=== PATIENT | female | born 1990 | race Hispanic/Latino ===

== ENCOUNTER 2024-06-09 09:00 | Inpatient (IN) | payer SELFPAY ==
[2024-06-09] VITALS (28 sets, daily range): BP systolic 109–154; BP diastolic 54–96; PULSE 72–99; RESP 12–21; TEMP 36.3–37; O2SAT 98–100; BMI 23.8
--- NOTE | ~2024-06-09 | XR_ITS ---
XR chest 2V Ordering provider: Alfonso Vigil MD History: 33 years Female with . chest pain, weakness post dialysis . Comparison: None. FINDINGS: MEDIASTINUM: The cardiac silhouette is not enlarged. A globular shape is noted. Evaluation for perica rdial effusion is advised. LUNGS: No pneumothorax. Opacification in the right lower lobe with blunting of the costophrenic angle which may indicate atelectasis versus pneumonia with pleural effusion. OTHER: No free air under the diaphragm. Stents seen in the right and left axilla. IMPRESSION: Right lower lobe atelectasis versus pneumonia with pleural effusion. Reviewed, dictated and finalized at location A. [facility]ATCHER
--- NOTE | 2024-06-09 09:02 | ECG_ITS ---
Test Date: 2024-06-09 09:07:58 Measurements Intervals [place] Rate: 102 P: 0 TN: 0 QRS: -29 QRSD: 93 T: 89 QT: 354 QTc: 462 Interpretive Statements SINUS TACHYCARDIA INCOMPLETE RIGHT BUNDLE BRANCH BLOCK BORDERLINE R WAVE PROGRESSION, ANTERIOR LEADS BORDERLINE ST-T WAVE ABNORMALITY- LAT/HIGH LAT LEADS BASELINE ARTIFACT- I, II, III, AVR, AVL, AVF BORDERLINE ECG No previous ECG available for comparison Electronically Signed On 06-09-2024 10:04:36 DAIRY HUSBANDMAN by Addy Carroll D.O.
[2024-06-09 09:19] LABS: Basophils Percent Auto 0.3 % (0.2-1.2); Eosinophils Absolute Auto 0.1 K/mm3 (0-0.3); Eosinophils Percent Auto 1.7 % (0-4.4); Immature Granulocyte Absolute 0.05 K/mm3 (0.00-0.031); Immature Granulocyte Percent A 0.7 % (0-0.5); Lymphocytes Absolute Auto 1.16 K/mm3 (0.9-3.2); Lymphocytes Percent Auto 16.9 % (18.3-44.2); Mean Corpuscular HGB Conc 34.4 g/dl (32-36); Mean Corpuscular Hemoglobin 32.1 pg (26-34); Mean Corpuscular Volume 93.4 fl (80-100); Mean Platelet Volume 9.9 fl (7.4-10.4); Monocytes Absolute Auto 0.3 K/mm3 (0.1-0.6); Monocytes Percent Auto 4.7 % (2.6-8.5); Neutrophils Absolute Auto 5.2 K/mm3 (1.3-6.7); Neutrophils Percent Auto 75.7 % (45.5-73.1); Platelet Count Result 219 k/mm3 (150-375); Red Blood Count 1.37 M/mm3 (4.2-5.4); Red Cell Distribution Width 14.2 % (11.5-14.5); White Blood Count 6.9 K/mm3 (4.5-10.0)
[2024-06-09 09:23] LABS: Hematocrit 12.8 % (37.0-47.0); Hemoglobin 4.4 g/dL (12.0-15.0)
[2024-06-09 09:30] LABS: Alanine Aminotransferase 11 U/L (6-35); Albumin Level 4.2 g/dL (3.5-5.1); Alkaline Phosphatase 154 U/L (38-126); Anion Gap 17 mmol/L (4-12); Aspartate Amino Transferase 12 U/L (14-36); Bilirubin,Total 0.7 mg/dL (0.2-1.3); Blood Urea Nitrogen 102 mg/dL (7-17); Calcium 8.6 mg/dL (8.4-10.2); Carbon Dioxide 28 mmol/L (22-30); Chloride 89 mmol/L (98-107); Estimated Glomerular Filt Rate 9; Glucose 105 mg/dL (65-110); Lipase 352 U/L (23-300); Potassium 3.9 mmol/L (3.4-5.0); Sodium 134 mmol/L (137-145)
[2024-06-09 09:31] LABS: INR 1.3; Prothrombin Time 16.9 Seconds (11.1-14.7)
[2024-06-09 09:32] LABS: Partial Thromboplastin Time 34.2 Seconds (22.3-36.8)
[2024-06-09 09:44] LABS: Troponin I 0.122 ng/mL (0.000-0.034)
--- NOTE | 2024-06-09 09:56 | ED_ITS ---
HPI - General Adult General Chief complaint: Chest Pain Stated complaint: chest pain from dialysis Time Seen by Provider: 06/09/24 09:27 History of Present Illness HPI narrative: 33 old female presenting to the emergency department for evaluation for hematemesis and hematochezia. Patient reports these symptoms started last night. Patient has no prior history of GERD or ulcers. 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 Patient did go to dialysis this morning but due to symptoms of lightheaded and dizziness she was transferred to the emergency department. Patient was found to have a hemoglobin of 4.4. Patient denies any chest pain or abdominal pain. Related Data Allergies Allergy/AdvReac Type Severity Reaction Status Date / Time No Known Allergies Allergy Verified 06/09/24 09:17 Review of Systems Review of Systems: All systems reviewed & are unremarkable except as noted in HPI and below PMFSH Past Medical History Medical History (Updated 06/09/24 @ 16:26 by Sloan Cisneros APRN) Hypertension Kidney transplant rejection Surgical History Surgical History (Updated 06/09/24 @ 16:26 by Sloan Cisneros APRN) Kidney transplant recipient Family History Family History (Updated 06/09/24 @ 14:38 by Beba Parikh RN) Unknown CKD (chronic kidney disease) Hypertension Diabetes mellitus Social History Social History Smoking status: Never smoker Alcohol intake: never Substance use: never Substance use type: does not use Do You Feel Safe in your Home?: Yes Lack of Transportation: No Lack of Food: Never True Current Housing: I Have Housing Concerned About Future Housing: No Difficulty Paying Gas/Electric Bills: No Difficulty Paying for Meds: No Currently Unemployed: YES Education: High School Diploma/GED Difficulty w/ Childcare or Family Care: No Spiritual care concerns: No Exam Narrative: APPEARANCE: Well appearing, no pain, no distress, well-nourished. HEAD: normocephalic, atraumatic. EYES: PERRLA/EOMI, conjunctivae clear. NOSE: Normal no drainage EARS:TMS clear with good light reflex. THROAT: Pharynx clear, no exudate. NECK: Supple. No adenopathy, no masses. RESPIRATORY: Airway patent, respirations nonlabored. Clear to auscultation bilaterally, no rales, rhonchi, wheezing. CARDIOVASCULAR: Regular rate and rhythm without murmurs rubs or gallops. ABDOMINAL: Soft, nontender, nondistended, normal bowel sounds MUSCULOSKELETAL: Moves all extremities. Strength/ROM intact, No edema, No calf tenderness. NEURO: Alert. Cranial nerves II through XII intact. Grossly intact SKIN: Warm, dry. Normal Color Course Vital Signs Vital signs: Vital Signs Temperature 97.3 F L 06/09/24 09:08 Pulse Rate 99 06/09/24 09:08 Respiratory Rate 18 06/09/24 09:08 Blood Pressure 120/54 L 06/09/24 09:08 Pulse Oximetry 100 06/09/24 09:08 Oxygen Delivery Room Air 06/09/24 09:08 Temperature 98.0 F 06/09/24 16:12 Pulse Rate 77 06/09/24 16:12 Respiratory Rate 20 06/09/24 16:12 Blood Pressure 119/74 06/09/24 16:12 Pulse Oximetry 100 06/09/24 16:12 Oxygen Delivery Room Air 06/09/24 10:31 Medical Decision Making [facility] Narrative Medical decision making narrative: 33 old female presents emergency department for evaluation for increased generalized weakness. Patient was found have a hemoglobin of 4.4 2 units of packed red blood cells were ordered. Does complain of hematochezia and melena. Patient had no further hematemesis in the emergency department but patient was started on Protonix and famotidine. Patient's digital rectal exam was positive for melena. Case was discussed with GI patient was accepted for admission. Patient did have subtle ST changes on her EKG but was chest pain-free. Case was discussed with cardiology in the agreed that this was most likely demand ischemia and they will follow the troponins, no heparin was recommended for cardiac reasons. GI was consulted as well. Nephrology was also consulted since the patient does have end-stage renal disease and has been on dialysis for the last 3 years. The patient is afebrile with no leukocytosis and hemoglobin of 4.4, patient's CMP is as expected for baseline. Patient's troponin was elevated but troponins were flat Differential Diagnosis Differential Diagnosis: ACS, gastritis, bleeding ulcer, Vital Signs Vital Signs: Vital Signs Temperature 97.3 F L 06/09/24 09:08 Pulse Rate 99 06/09/24 09:08 Respiratory Rate 18 06/09/24 09:08 Blood Pressure 120/54 L 06/09/24 09:08 Pulse Oximetry 100 06/09/24 09:08 Oxygen Delivery Room Air 06/09/24 09:08 Temperature 98.0 F 06/09/24 16:12 Pulse Rate 77 06/09/24 16:12 Respiratory Rate 20 06/09/24 16:12 Blood Pressure 119/74 06/09/24 16:12 Pulse Oximetry 100 06/09/24 16:12 Oxygen Delivery Room Air 06/09/24 10:31 Lab Data Lab results reviewed: Yes I reviewed the patient's lab results. 06/09/24 09:14 06/09/24 09:14 Labs: Lab Results 06/09/24 06/09/24 06/09/24 Range/Units 09:14 09:48 11:59 WBC 6.9 (4.5-10.0) K/mm3 RBC 1.37 L (4.2-5.4) M/mm3 Hgb 4.4 L* (12.0-15.0) g/dL Hct 12.8 L* (37.0-47.0) % MCV 93.4 (80-100) fl MCH 32.1 (26-34) pg MCHC 34.4 (32-36) g/dl RDW 14.2 (11.5-14.5) % Plt Count 219 (150-375) k/mm3 MPV 9.9 (7.4-10.4) fl Immature Gran % (Auto) 0.7 H (0-0.5) % Neut % (Auto) 75.7 H (45.5-73.1) % Lymph % (Auto) 16.9 L (18.3-44.2) % [place] % (Auto) 4.7 (2.6-8.5) % Eos % (Auto) 1.7 (0-4.4) % Baso % (Auto) 0.3 (0.2-1.2) % Lymph # (Auto) 1.16 (0.9-3.2) K/mm3 [place] # (Auto) 0.3 (0.1-0.6) K/mm3 Eos # (Auto) 0.1 (0-0.3) K/mm3 Baso # (Auto) 0.0 (0.0-0.1) K/mm3 Abs Immat Gran (auto) 0.05 H (0.00-0.031) K/mm3 Absolute Neuts (auto) 5.2 (1.3-6.7) K/mm3 Absolute Nucleated RBC 0.000 (0.0-0.012) K/mm3 Nucleated RBC % 0.0 (0.0-0.2) % PT 16.9 H (11.1-14.7) Seconds INR 1.3 APTT 34.2 (22.3-36.8) Seconds Sodium 134 L (137-145) mmol/L Potassium 3.9 (3.4-5.0) mmol/L Chloride 89 L (98-107) mmol/L Carbon Dioxide 28 (22-30) mmol/L Anion Gap 17 H (4-12) mmol/L BUN 102 H (7-17) mg/dL Creatinine 5.50 H (0.7-1.0) mg/dL Estim Creat Clear Calc Not Reportable Estimated GFR 9 L (59 - ) Glucose 105 (65-110) mg/dL Calcium 8.6 (8.4-10.2) mg/dL Total Bilirubin 0.7 (0.2-1.3) mg/dL AST 12 L (14-36) U/L ALT 11 (6-35) U/L Alkaline Phosphatase 154 H (38-126) U/L Troponin I 0.122 H* 0.116 H* (0.000-0.034) ng/mL Total Protein 8.0 (6.3-8.2) g/dL Albumin 4.2 (3.5-5.1) g/dL Lipase 352 H (23-300) U/L Blood Type O Positive Antibody Screen Negative Crossmatch See Detail Imaging Data Radiologist's impression: Impressions Chest X-Ray 06/09/24 09:33 IMPRESSION: Right lower lobe atelectasis versus pneumonia with pleural effusion. Critical Care Time Critical Care Time Critical Care Time: Yes Total Critical Care Time: 35 Discharge Plan Discharge Clinical Impression: Hematochezia, Hematemesis Patient Disposition: Still a Patient Condition: Serious
[2024-06-09] MEDS: FAMOTIDINE 20 MG/2 ML VIAL IV PUSH (10:11)
[2024-06-09] MEDS: PANTOPRAZOLE SODIUM IV 40 MG VIAL 80 MG IV PUSH (10:11)
[2024-06-09] MEDS: SODIUM CHLORIDE 0.9% IV 250 ML 30 ML IV CONT ×2 (11:13→20:39)
[2024-06-09] MEDS: TUBING, BLOOD PLUM PUMP TUBING 1 EACH XX ×3 (11:18→20:40)
--- NOTE | 2024-06-09 12:23 | ECG_ITS ---
Test Date: 2024-06-09 12:43:30 Measurements Intervals [place] Rate: 84 P: 51 FL: 152 QRS: -27 QRSD: 90 T: 74 QT: 407 QTc: 481 Interpretive Statements SINUS RHYTHM INCOMPLETE RIGHT BUNDLE BRANCH BLOCK DELAYED PRECORDIAL R/S TRANSITION BORDERLINE ST-T WAVE ABNORMALITY- HIGH LATERAL LEADS BASELINE ARTIFACT- II, III, AVF BORDERLINE ECG Compared to ECG 06/09/2024 09:07:58 HEART RATE HAS DECREASED Electronically Signed On 06-09-2024 12:50:01 COMPLIANCE AIDE by Addy Carroll D.O.
[2024-06-09 12:41] LABS: Troponin I 0.116 ng/mL (0.000-0.034)
--- NOTE | 2024-06-09 12:48 | P.HP_ITS ---
H&P: HPI History of Present Illness Date/Time: 06/09/24 12:48 Chief Complaint: symptomatic anemia Narrative: This is a 33-year-old female patient with a past medical history of hypertension and end-stage renal disease on dialysis Saturday at [facility] in [place] who is admitted to hospital after feeling lightheaded and dizzy while at dialysis. Patient reported hematemesis and bloody stool on 06/07/2024 but afterwards she felt better so she did not seek care at that time. While at dialysis this morning patient had significant symptoms and felt terrible so dialysis was cut short and she was brought to the emergency department for evaluation. In the emergency department patient found to have hemoglobin of 4.4. Unknown baseline labs as no prior records are available in our system. Blood transfusion initiated in the emergency department and patient admitted to the IMU. GI and Nephrology were consulted. Review of Systems Review of Systems: All systems reviewed & are unremarkable except as noted in HPI and below PMFSH Past Medical History Medical History Hypertension Kidney transplant rejection Surgical History Surgical History Kidney transplant recipient Family History Family History Unknown CKD (chronic kidney disease) Hypertension Diabetes mellitus Social History Social History Smoking status: Never smoker Alcohol intake: never Substance use: never Substance use type: does not use Do You Feel Safe in your Home?: Yes Lack of Transportation: No Lack of Food: Never True Current Housing: I Have Housing Concerned About Future Housing: No Difficulty Paying Gas/Electric Bills: No Difficulty Paying for Meds: No Currently Unemployed: YES Education: High School Diploma/GED Difficulty w/ Childcare or Family Care: No Spiritual care concerns: No Meds Home Medications and Allergies Home Medications Medication Instructions Recorded Confirmed Type calcium acetate(phosphat bind) 667 667 mg PO BID 06/09/24 06/09/24 History mg capsule nifedipine 90 mg tablet,extended 90 mg PO DAILY 06/09/24 06/09/24 History release Allergies Allergy/AdvReac Type Severity Reaction Status Date / Time No Known Allergies Allergy Verified 06/09/24 09:17 Vital Signs Vital Signs - 24 hr 06/09/24 09:08 06/09/24 09:52 06/09/24 09:53 Temperature 36.3 C L Pulse Rate 99 92 91 Respiratory Rate 18 12 Blood Pressure 120/54 L 128/77 Pulse Oximetry 100 100 Oxygen Delivery Room Air 06/09/24 10:31 06/09/24 11:03 06/09/24 11:13 Temperature 36.7 C Pulse Rate 90 91 Respiratory Rate 18 18 Blood Pressure 114/80 113/74 Pulse Oximetry 100 100 Oxygen Delivery Room Air 06/09/24 11:18 06/09/24 11:23 06/09/24 11:28 Temperature 36.7 C 36.7 C 36.7 C Pulse Rate 89 87 90 Respiratory Rate 20 21 H 16 Blood Pressure 113/68 111/76 109/74 Pulse Oximetry 100 100 100 Oxygen Delivery 06/09/24 11:33 06/09/24 11:33 06/09/24 12:02 Temperature 36.7 C 36.7 C 36.7 C Pulse Rate 89 89 92 Respiratory Rate 20 20 21 H Blood Pressure 109/77 109/77 110/76 Pulse Oximetry 98 98 100 Oxygen Delivery 06/09/24 12:28 06/09/24 12:28 Temperature 36.7 C 36.7 C Pulse Rate 84 84 Respiratory Rate 20 20 Blood Pressure 117/82 117/82 Pulse Oximetry 99 99 Oxygen Delivery Exam Narrative: GENERAL: no acute distress noted HEAD: normocephalic, atraumatic. EYES: PERRLA/EOMI, conjunctivae clear. NECK: Supple. No adenopathy, no masses. RESPIRATORY: Airway patent, respirations nonlabored. Clear to auscultation bilaterally, no rales, rhonchi, wheezing. CARDIOVASCULAR: Regular rate and rhythm without murmurs rubs or gallops. ABDOMINAL: Soft, nontender, nondistended, normal bowel sounds MUSCULOSKELETAL: Moves all extremities. Strength/ROM intact, No edema, No calf tenderness. NEURO: Alert. Cranial nerves II through XII intact. No focal deficits noted SKIN: Warm, dry. Normal Color H&P: Results Labs Labs: Short CBC 06/09/24 Range/Units 09:14 WBC 6.9 (4.5-10.0) K/mm3 Hgb 4.4 L* (12.0-15.0) g/dL Hct 12.8 L* (37.0-47.0) % Plt Count 219 (150-375) k/mm3 BMP 06/09/24 09:14 Sodium 134 L Potassium 3.9 Chloride 89 L Carbon Dioxide 28 BUN 102 H Creatinine 5.50 H Glucose 105 Calcium 8.6 Cardiac Enzymes 06/09/24 06/09/24 Range/Units 09:14 11:59 Troponin I 0.122 H* 0.116 H* (0.000-0.034) ng/mL Liver Function 06/09/24 Range/Units 09:14 Total Bilirubin 0.7 (0.2-1.3) mg/dL AST 12 L (14-36) U/L ALT 11 (6-35) U/L Alkaline Phosphatase 154 H (38-126) U/L Albumin 4.2 (3.5-5.1) g/dL Pulse Oximetry SpO2 results: 98-100% on room air Attestation: I personally reviewed and interpreted this pulse oximetry as follows: Interpretation: no need for supplemental oxygenation at this time ECG Attestation: I personally reviewed and interpreted this ECG as follows: ECG completion date: 06/09/24 ECG completion time: 12:43 Prior ECG tracings: available for review Interpretation: sinus rhythm rate of 84 IA interval 152 QRS duration 90 QTC 481 QRS axis -27, no STEMI somewhat prolonged QTC Imaging Chest x-ray: Radiologist's impression: XR chest 2V Ordering provider: Alfonso Vigil MD History: 33 years Female with . chest pain, weakness post dialysis . Comparison: None. FINDINGS: MEDIASTINUM: The cardiac silhouette is not enlarged. A globular shape is noted. Evaluation for pericardial effusion is advised. LUNGS: No pneumothorax. Opacification in the right lower lobe with blunting of the costophrenic angle which may indicate atelectasis versus pneumonia with pleural effusion. OTHER: No free air under the diaphragm. Stents seen in the right and left axilla. IMPRESSION: Right lower lobe atelectasis versus pneumonia with pleural effusion. Reviewed, dictated and finalized at location A. [employer] Assessment and Plan Assessment and plan (1) Symptomatic anemia: Code(s): D64.9 - Anemia, unspecified Status: Acute Assessment and Plan: -Initial Hemoglobin 4.4 -ER ordered 2 units PRBCs -Repeat Hemoglobin 7.6, ordered third unit to transfuse above 8 (2) Hematemesis: Code(s): K92.0 - Hematemesis Status: Acute Assessment and Plan: -Reports 2 days ago had hematemesis with bloody stools then felt better until at dialysis on 06/09 -IV pantoprazole 40 mg Q12HR after inital load of 80 mg IV in ER -PRBC transfusion to keep HgB above 8 due to elevated troponin/Type 2 ID diagnosis -GI consult with plan for EGD on 06/10/24 (3) Hematochezia: Code(s): K92.1 - Melena Status: Acute Assessment and Plan: -Reports 2 days ago had hematemesis with bloody stools then felt better until at dialysis on 06/09 -IV pantoprazole 40 mg Q12HR after inital load of 80 mg IV in ER -PRBC transfusion to keep HgB above 8 due to elevated troponin/Type 2 ID diagnosis -GI consult with plan for EGD on 06/10/24 (4) Type 2 ID (myocardial infarction): Code(s): I21.A1 - Myocardial infarction type 2 Status: Acute Assessment and Plan: -Elevated troponin on arrival to ER, mildly downtrending since initial elevated result -Cardiology consulted -Patient did receive 324 mg aspirin in ER -Echocardiogram ordered -CXR reports need to evaluate for pericardial effusion -PRBC transfusion to keep HgB above 8 due to elevated troponin/Type 2 ID diagnosis (5) Hypertension: Code(s): I10 - Essential (primary) hypertension Status: Acute Assessment and Plan: -ESRD due to uncontrolled HTN -Nifedipine is home medication per Med Rec (6) ESRD (end stage renal disease) on dialysis: Code(s): N18.6 - End stage renal disease; Z99.2 - Dependence on renal dialysis Status: Acute Assessment and Plan: -Did not complete dialysis on 06/09 -Nephrology consulted -Repeat metabolic panel showed mild hyperkalemia which was treated with Lokelma, insulin/D50 (7) Metabolic acidosis: Code(s): E87.20 - Acidosis, unspecified Status: Acute Assessment and Plan: Initial chemistry panel with anion gap of 17, improved to 12 after 2 units PRBCs and may have been related to dehydration from acute blood loss anemia. (8) Hyponatremia: Code(s): E87.1 - Hypo-osmolality and hyponatremia Status: Acute Assessment and Plan: -Mild hyponatremia of 133-134 -Monitor with daily labs Quality VTE Prophylaxis VTE prophylaxis: mechanical ordered If No VTE Prophylaxis Answer both mechanical and pharmacologic: Reason no pharmacologic proph: medical contraindication active bleeding/bleeding risk Hospitalist MIPS Advance Care Plan I have confirmed that the patient's Advanced Care Plan is present, code status is documented, or surrogate decision maker is listed in patient medical record.: Yes Medication Reconciliation I have utilized all available resources to obtain, update and review the patients current medications (includes all prescriptions, OTC, herbals, cannabis, and nutritional supplements).: Yes
--- NOTE | 2024-06-09 13:01 | PC.NURSE ---
Patient showed on tele V-tach. Patient was checked on and patient was alert and denied any symptoms. Tele Strip printed and showed to MD Musa
[2024-06-09 15:24] LABS: Troponin I 0.112 ng/mL (0.000-0.034)
--- NOTE | 2024-06-09 16:12 | PM.CNCAR ---
Assessment and Plan Assessment and plan (1) Type 2 OR (myocardial infarction): Code(s): I21.A1 - Myocardial infarction type 2 Status: Acute Plan 1. ESRD on hemodialysis 2. Acute blood loss anemia 3. Upper GI bleed 4. Type 2 OR -the patient's presentation is suggestive of a type 2 OR -will get an echo to assess LV function -no need for any invasive evaluation or a stress test -no need for heparin, aspirin -cardiology will sign off. Please call us with any questions or concerns History of Present Illness History of Present Illness Consult date/time: 06/09/24 16:12 Reason For Visit: Upper GI Bleed/Elevated Troponin/End Stage Renal D Narrative: Ms Fernandez is a 33-year-old pleasant lady known to have ESRD on hemodialysis. She is admitted with upper GI bleed with a hemoglobin of 4. Cardiology consulted for elevated biomarkers She denies any chest pain EKG shows normal sinus rhythm, incomplete right bundle-branch block, no dynamic ST-T changes Flag biomarker profile; troponin 0.112, 0.116, 0.122 Review of Systems Review of Systems: All systems reviewed & are unremarkable except as noted in HPI and below PMFSH Family History Family History (Updated 06/09/24 @ 14:38 by Beba Parikh RN) Unknown CKD (chronic kidney disease) Hypertension Diabetes mellitus Social History Social History Smoking status: Never smoker Alcohol intake: never Substance use: never Substance use type: does not use Do You Feel Safe in your Home?: Yes Lack of Transportation: No Lack of Food: Never True Current Housing: I Have Housing Concerned About Future Housing: No Difficulty Paying Gas/Electric Bills: No Difficulty Paying for Meds: No Currently Unemployed: YES Education: High School Diploma/GED Difficulty w/ Childcare or Family Care: No Spiritual care concerns: No Meds Home Medications and Allergies Allergies Allergy/AdvReac Type Severity Reaction Status Date / Time No Known Allergies Allergy Verified 06/09/24 09:17 Vital Signs Vital Signs - 24 hr 06/09/24 09:08 06/09/24 09:52 06/09/24 09:53 Temperature 36.3 C L Pulse Rate 99 92 91 Respiratory Rate 18 12 Blood Pressure 120/54 L 128/77 Pulse Oximetry 100 100 Oxygen Delivery Room Air 06/09/24 10:31 06/09/24 11:03 06/09/24 11:13 Temperature 36.7 C Pulse Rate 90 91 Respiratory Rate 18 18 Blood Pressure 114/80 113/74 Pulse Oximetry 100 100 Oxygen Delivery Room Air 06/09/24 11:18 06/09/24 11:23 06/09/24 11:28 Temperature 36.7 C 36.7 C 36.7 C Pulse Rate 89 87 90 Respiratory Rate 20 21 H 16 Blood Pressure 113/68 111/76 109/74 Pulse Oximetry 100 100 100 Oxygen Delivery 06/09/24 11:33 06/09/24 11:33 06/09/24 12:02 Temperature 36.7 C 36.7 C 36.7 C Pulse Rate 89 89 92 Respiratory Rate 20 20 21 H Blood Pressure 109/77 109/77 110/76 Pulse Oximetry 98 98 100 Oxygen Delivery 06/09/24 12:28 06/09/24 12:28 06/09/24 12:31 Temperature 36.7 C 36.7 C Pulse Rate 84 84 88 Respiratory Rate 20 20 17 Blood Pressure 117/82 117/82 119/80 Pulse Oximetry 99 99 99 Oxygen Delivery 06/09/24 12:46 06/09/24 13:52 06/09/24 14:12 Temperature 36.7 C 36.7 C Pulse Rate 83 79 79 Respiratory Rate 17 18 18 Blood Pressure 120/77 118/76 116/71 Pulse Oximetry 100 100 Oxygen Delivery 06/09/24 14:29 06/09/24 15:12 Temperature 36.7 C 36.8 C Pulse Rate 79 79 Respiratory Rate 18 20 Blood Pressure 116/71 122/79 Pulse Oximetry 100 100 Oxygen Delivery Exam Narrative: APPEARANCE: Well appearing, no pain, no distress, well-nourished. HEAD: normocephalic, atraumatic. EYES: PERRLA/EOMI, conjunctivae clear. NOSE: Normal no drainage EARS:TMS clear with good light reflex. THROAT: Pharynx clear, no exudate. NECK: Supple. No adenopathy, no masses. RESPIRATORY: Airway patent, respirations nonlabored. Clear to auscultation bilaterally, no rales, rhonchi, wheezing. CARDIOVASCULAR: Regular rate and rhythm without murmurs rubs or gallops. ABDOMINAL: Soft, nontender, nondistended, normal bowel sounds MUSCULOSKELETAL: Moves all extremities. Strength/ROM intact, No edema, No calf tenderness. NEURO: Alert. Cranial nerves II through XII intact. Grossly intact SKIN: Warm, dry. Normal Color Results Labs and Meds 06/09/24 09:14 06/09/24 09:14 Lab results: Cardiac Enzymes 06/09/24 06/09/24 06/09/24 Range/Units 09:14 11:59 14:54 AST 12 L (14-36) U/L Troponin I 0.122 H* 0.116 H* 0.112 H* (0.000-0.034) ng/mL Coagulation 06/09/24 Range/Units 09:14 PT 16.9 H (11.1-14.7) Seconds APTT 34.2 (22.3-36.8) Seconds CBC 06/09/24 Range/Units 09:14 WBC 6.9 (4.5-10.0) K/mm3 RBC 1.37 L (4.2-5.4) M/mm3 Hgb 4.4 L* (12.0-15.0) g/dL Hct 12.8 L* (37.0-47.0) % Plt Count 219 (150-375) k/mm3 Lymph # (Auto) 1.16 (0.9-3.2) K/mm3 [place] # (Auto) 0.3 (0.1-0.6) K/mm3 Eos # (Auto) 0.1 (0-0.3) K/mm3 Baso # (Auto) 0.0 (0.0-0.1) K/mm3 Comprehensive Metabolic Panel 06/09/24 Range/Units 09:14 Sodium 134 L (137-145) mmol/L Potassium 3.9 (3.4-5.0) mmol/L Chloride 89 L (98-107) mmol/L Carbon Dioxide 28 (22-30) mmol/L BUN 102 H (7-17) mg/dL Creatinine 5.50 H (0.7-1.0) mg/dL Glucose 105 (65-110) mg/dL Calcium 8.6 (8.4-10.2) mg/dL AST 12 L (14-36) U/L ALT 11 (6-35) U/L Alkaline Phosphatase 154 H (38-126) U/L Total Protein 8.0 (6.3-8.2) g/dL Albumin 4.2 (3.5-5.1) g/dL Intake and Output 06/09/24 06/09/24 06/09/24 07:59 15:59 23:59 Intake Total 350 Balance 350 Intake: Intake (Blood Product) Amt 350 Leukocyte Reduced Rbc Unit 350 [id number] Leukocyte Reduced Rbc Unit 0 [id number] Patient Weight 06/09/24 23:59 Weight 53.6 kg
--- NOTE | 2024-06-09 18:05 | P.CONGI_ITS ---
Assessment and Plan Assessment and plan (1) Symptomatic anemia: Code(s): D64.9 - Anemia, unspecified Status: Acute Assessment and Plan: Patient with acute on chronic anemia, multifactorial with and in component of upper GI bleeding which is currently stabilized. We will keep her NPO and perform an EGD tomorrow morning with possible therapy of bleeding source if found. (2) Hematochezia: Code(s): K92.1 - Melena Status: Acute (3) Hematemesis: Code(s): K92.0 - Hematemesis Status: Acute GI Consult Note Consult date/time: 06/09/24 18:05 HPI: Deysi Fernandez is a 33 year old female With a diagnosis of end-stage renal disease, status post kidney transplant in 2017 which was rejected, and has been on hemodialysis since. She was in her usual state of health and today's before admission she experienced several vomiting episodes of coffee-ground material with subsequent melena . Yesterday she felt better and had no further melena or hematemesis but during today's dialysis he felt extremely weak and dizzy and was brought to the emergency room. She was found to have a very low hemoglobin of around 4 and was admitted. She received 2 units of packed red blood cells. she denies NSAIDs or aspirin ingestion and never had an EGD. Review of Systems Review of Systems: All systems reviewed & are unremarkable except as noted in HPI and below PMFSH Past Medical History Medical History (Updated 06/09/24 @ 16:26 by Sloan Cisneros APRN) Hypertension Kidney transplant rejection Surgical History Surgical History (Updated 06/09/24 @ 16:26 by Sloan Cisneros APRN) Kidney transplant recipient Family History Family History (Updated 06/09/24 @ 14:38 by Beba Parikh RN) Unknown CKD (chronic kidney disease) Hypertension Diabetes mellitus Social History Social History Smoking status: Never smoker Alcohol intake: never Substance use: never Substance use type: does not use Do You Feel Safe in your Home?: Yes Lack of Transportation: No Lack of Food: Never True Current Housing: I Have Housing Concerned About Future Housing: No Difficulty Paying Gas/Electric Bills: No Difficulty Paying for Meds: No Currently Unemployed: YES Education: High School Diploma/GED Difficulty w/ Childcare or Family Care: No Spiritual care concerns: No Meds Home Medications and Allergies Allergies Allergy/AdvReac Type Severity Reaction Status Date / Time No Known Allergies Allergy Verified 06/09/24 09:17 Vital Signs Vital Signs - 24 hr 06/09/24 09:08 06/09/24 09:52 06/09/24 09:53 Temperature 97.3 F L Pulse Rate 99 92 91 Respiratory Rate 18 12 Blood Pressure 120/54 L 128/77 Pulse Oximetry 100 100 Oxygen Delivery Room Air 06/09/24 10:31 06/09/24 11:03 06/09/24 11:13 Temperature 98.1 F Pulse Rate 90 91 Respiratory Rate 18 18 Blood Pressure 114/80 113/74 Pulse Oximetry 100 100 Oxygen Delivery Room Air 06/09/24 11:18 06/09/24 11:23 06/09/24 11:28 Temperature 98.1 F 98.1 F 98.1 F Pulse Rate 89 87 90 Respiratory Rate 20 21 H 16 Blood Pressure 113/68 111/76 109/74 Pulse Oximetry 100 100 100 Oxygen Delivery 06/09/24 11:33 06/09/24 11:33 06/09/24 12:02 Temperature 98.0 F 98.0 F 98.0 F Pulse Rate 89 89 92 Respiratory Rate 20 20 21 H Blood Pressure 109/77 109/77 110/76 Pulse Oximetry 98 98 100 Oxygen Delivery 06/09/24 12:28 06/09/24 12:28 06/09/24 12:31 Temperature 98.1 F 98.0 F Pulse Rate 84 84 88 Respiratory Rate 20 20 17 Blood Pressure 117/82 117/82 119/80 Pulse Oximetry 99 99 99 Oxygen Delivery 06/09/24 12:46 06/09/24 13:52 06/09/24 14:12 Temperature 98.0 F 98.1 F Pulse Rate 83 79 79 Respiratory Rate 17 18 18 Blood Pressure 120/77 118/76 116/71 Pulse Oximetry 100 100 Oxygen Delivery 06/09/24 14:29 06/09/24 15:12 06/09/24 16:12 Temperature 98.0 F 98.2 F 98.0 F Pulse Rate 79 79 77 Respiratory Rate 18 20 20 Blood Pressure 116/71 122/79 119/74 Pulse Oximetry 100 100 100 Oxygen Delivery 06/09/24 16:00 Temperature 98.0 F Pulse Rate 77 Respiratory Rate 20 Blood Pressure 119/74 Pulse Oximetry 100 Oxygen Delivery Exam Const: General: cooperative Resp: Effort & Inspection: normal respiratory effort and able to speak in c omplete sentences Auscultation: clear to auscultation bilaterally Cardio: Rate: regular rate Rhythm: regular rhythm GI: Inspection: normal to inspection GI Palp: No No hepatosplenomegaly present Auscultation: normal bowel sounds Rectal Exam: deferred Psych: Appearance: grossly normal Mental Status: mental status grossly normal Results Labs 06/09/24 09:14 06/09/24 09:14 Labs: Short CBC 06/09/24 Range/Units 09:14 WBC 6.9 (4.5-10.0) K/mm3 Hgb 4.4 L* (12.0-15.0) g/dL Hct 12.8 L* (37.0-47.0) % Plt Count 219 (150-375) k/mm3 [facility] 06/09/24 09:14 Sodium 134 L Potassium 3.9 Chloride 89 L Carbon Dioxide 28 BUN 102 H Creatinine 5.50 H Glucose 105 Calcium 8.6 Cardiac Enzymes 06/09/24 06/09/24 06/09/24 Range/Units 09:14 11:59 14:54 Troponin I 0.122 H* 0.116 H* 0.112 H* (0.000-0.034) ng/mL Liver Function 06/09/24 Range/Units 09:14 Total Bilirubin 0.7 (0.2-1.3) mg/dL AST 12 L (14-36) U/L ALT 11 (6-35) U/L Alkaline Phosphatase 154 H (38-126) U/L Albumin 4.2 (3.5-5.1) g/dL
[2024-06-09 18:26] LABS: Hematocrit 22.6 % (37.0-47.0); Hemoglobin 7.6 g/dL (12.0-15.0)
[2024-06-09 18:39] LABS: Anion Gap 12 mmol/L (4-12); Blood Urea Nitrogen 107 mg/dL (7-17); Calcium 8.2 mg/dL (8.4-10.2); Carbon Dioxide 29 mmol/L (22-30); Chloride 92 mmol/L (98-107); Estimated Glomerular Filt Rate 6; Glucose 98 mg/dL (65-110); Potassium 5.4 mmol/L (3.4-5.0); Sodium 133 mmol/L (137-145)
[2024-06-09] MEDS: LACTATED RINGERS 1,000 ML 150 ML IV CONT (18:49)
[2024-06-09] MEDS: SODIUM ZIRCONIUM CYCLOSILICATE 10 GM POWD.PACK PO (20:37)
[2024-06-09] MEDS: DEXTROSE 50% 25 GM/50 ML SYRINGE IV PUSH (20:37)
[2024-06-09] MEDS: PANTOPRAZOLE SODIUM IV 40 MG VIAL IV PUSH (20:40)
[2024-06-09] MEDS: INSULIN HUMAN REGULAR (*BKC) 100 UNITS/ML 8 UNITS IV PUSH (20:40)
[2024-06-09 21:58] LABS: Glucose Point of Care 98 mg/dl (65-105)
[2024-06-09 21:58] LABS: Glucose Point of Care 134 mg/dl (65-105)
[2024-06-10] VITALS (26 sets, daily range): BP systolic 126–181; BP diastolic 80–104; PULSE 68–92; RESP 16–18; TEMP 36.3–37.1; O2SAT 91–100
--- NOTE | 2024-06-10 | ECHO_ITS ---
Patient Info Name: Deysi Fernandez Age: 33 years : 1990 Gender: Female Ht: 59 in Wt: 118 lbs BSA: 1.50 m2 HR: 73 bpm BP: 148 / 96 mmHg Technical Quality: Fair Exam Date: 06/10/2024 2:53 PM Exam Location: Echo Lab Patient Status: Inpatient Admit Date: 06/10/2024 Staff Ordering Physician: David Dumont MD/maggie) Injection Wax Molder: NATI Attending Provider: Fatou Hale MD Referring Physician: Tim LOPEZ; Exam Type: CA echo dop color flow w con Study Info Indications - CAD Complete two-dimensional, color flow and Doppler transthoracic echocardiogram is performed with contrast to opacify the left ventricle and to improve the deliniation of the left ventricle endocardial borders. Contrast/Agitated Saline Contrast/Ag. Saline: Definity Amount: 2.00 ml Existing IV Access: Yes Summary 1. Left ventricular chamber dimension is normal. 2. Left ventricular wall thickness is mildly increased. 3. Left ventricular systolic function is normal with an ejection fraction by Biplane Method of Discs of 65 %. 4. The left ventricular diastolic function is normal. 5. Right atrial chamber dimension is normal. 6. There is no aortic valve stenosis with a peak velocity of 176.49 cm/s, mean gradient of 9 mmHg, and aortic valve area of 1.96 cm2. 7. There is trace mitral valve regurgitation. 8. There is mild tricuspid valve regurgitation. 9. Mild pulmonary hypertension, estimated pulmonary arterial systolic pressure is 48 mmHg. Left Ventricle Left ventricular chamber dimension is normal. Left ventricular wall thickness is mildly increased. Left ventricular systolic function is normal with an ejection fraction by Biplane Method of Discs of 65 %. The left ventricular diastolic function is normal. Right Ventricle Right ventricular chamber dimension is normal. Right ventricular systolic function is normal. Left Atria Left atrial chamber dimension is enlarged. Right Atria Right atrial chamber dimension is normal. Aortic Valve There is no aortic valve stenosis with a peak velocity of 176.49 cm/s, mean gradient of 9 mmHg, and aortic valve area of 1.96 cm2. The aortic valve is trileaflet. There is no aortic valve regurgitation. Mitral Valve The mitral valve has normal leaflets. There is trace mitral valve regurgitation. Tricuspid Valve There is mild tricuspid valve regurgitation. Mild pulmonary hypertension, estimated pulmonary arterial systolic pressure is 48 mmHg. Inferior Vena Cava Normal inferior vena cava with <50% collapse upon inspiration consistent with elevated right atrial pressure, 10 mmHg. Aorta The prox ascending aorta size is normal. The aortic root size at the sinus of Valsalva is normal. Left Ventricular Outflow Tract Name Value Normal LVOT 2D LVOT Diameter 1.90 cm LVOT Doppler LVOT Peak Gradient 7 mmHg LVOT Mean Gradient 4 mmHg LVOT VTI 24.88 cm LVOT VTI/AV VTI Ratio 0.69 LVOT Stroke Volume 70.66 ml LVOT CO 5.96 l/min LVOT CI 3.96 L/min/m2 Pulmonic Valve Name Value Normal RVOT Doppler RVOT Peak Gradient 3 mmHg PV Doppler PV Peak Gradient 5 mmHg Mitral Valve Name Value Normal MV Doppler MV Peak Gradient 11 mmHg MV Mean Gradient 4 mmHg MV Decel Eagle 820.21 cm/s2 MV PHT 0 s MV Area (PHT) 5.09 cm2 4.00-5.00 MV Area (Cont Eq VTI) 2.19 cm2 MV Diastolic Function MV E Peak Velocity 122.29 cm/s MV A Peak Velocity 58.73 cm/s MV E/A 2.08 MV Decel Time 0 s MV Annular TDI MV E/e' (Septal) 12.77 <=8.00 MV E/e' (Lateral) 18.90 <=8.00 MV E/e' (Average) 15.84 Tricuspid Valve Name Value Normal TV Regurgitation Doppler TR Peak Velocity 306.66 cm/s TR Peak Gradient 38 mmHg Estimated PAP/RSVP RA Pressure 10 mmHg <=5 PA Systolic Pressure 48 mmHg <36 RV Systolic Pressure 48 mmHg <36 Aorta Name Value Normal Ascending Aorta Ao Root Diameter (MM) 2.80 cm Ao Root Diam Index (MM) 1.86 cm/m2 Aortic Valve Name Value Normal AV Doppler AV Peak Velocity 176.49 cm/s AV Peak Gradient 12 mmHg AV Mean Gradient 9 mmHg AV VTI 36.02 cm AV Area (Cont Eq VTI) 1.96 cm2 >=3.00 AV Area (Cont Eq Collin) 2.07 cm2 AV Regurgitation 2D LVOT Area 2.84 cm2 Ventricles Name Value Normal LV Dimensions 2D/MM IVS Diastolic Thickness (2D) 1.22 cm 0.60-1.00 LVID Diastole (2D) 4.31 cm 3.80-5.20 LVIW Diastolic Thickness (2D) 1.11 cm 0.60-0.90 LVID Systole (2D) 2.75 cm 2.20-3.50 LVOT Diameter 1.90 cm LV Mass (2D Cubed) 178.38 g 67.00-162.00 LV Mass Index (2D Cubed) 0.01 g/cm2 0.00-0.01 Relative Wall Thickness (2D) 0.52 LV Fractional Shortening/Ejection Fraction 2D/MM LV Fractional Shortening (2D) 32 % 27-45 LV EF (2D Teicholz) 61 % 54-74 LV Diastolic Volume (4C MOD) 144.82 ml LV EF (4C MOD) 62 % LV Diastolic Volume (2C MOD) 136.07 ml LV EF (2C MOD) 67 % LV Diastolic Volume (BP MOD) 140.45 ml 46.00-106.00 LV Diastolic Volume Index (BP MOD) 0.09 l/m2 0.03-0.06 LV Systolic Volume (BP MOD) 49.46 ml 14.00-42.00 LV Systolic Volume Index (BP MOD) 0.03 l/m2 0.01-0.02 LV EF (BP MOD) 65 % 54-74 LV Diastolic Length (4C) 8.49 cm LV Systolic Length (4C) 6.88 cm LV Stroke Volume (4C MOD) 89.96 ml Atria Name Value Normal LA Dimensions LA Dimension (MM) 3.95 cm 2.70-3.80 LA Volume (4C A-L) 47.80 ml LA Volume (BP A-L) 58.61 ml RA Dimensions RA Area (4C) 15.90 cm2 <=18.00 Report Signatures
[2024-06-10 01:17] LABS: Hematocrit 23.6 % (37.0-47.0); Hemoglobin 8.2 g/dL (12.0-15.0)
[2024-06-10 01:30] LABS: Albumin Level 3.8 g/dL (3.5-5.1); Anion Gap 10 mmol/L (4-12); Blood Urea Nitrogen 104 mg/dL (7-17); Calcium 8.4 mg/dL (8.4-10.2); Carbon Dioxide 29 mmol/L (22-30); Chloride 93 mmol/L (98-107); Estimated Glomerular Filt Rate 6; Glucose 93 mg/dL (65-110); Phosphorus 6.3 mg/dL (2.5-4.5); Potassium 5.4 mmol/L (3.4-5.0); Sodium 132 mmol/L (137-145)
[2024-06-10] MEDS: DEXTROSE 50% 25 GM/50 ML SYRINGE IV PUSH ×2 (02:56→05:03)
[2024-06-10] MEDS: SODIUM ZIRCONIUM CYCLOSILICATE 5 GM POWD.PACK 15 GM PO (02:59)
[2024-06-10] MEDS: LACTATED RINGERS 1,000 ML 150 ML IV CONT (03:05)
[2024-06-10] MEDS: INSULIN HUMAN REGULAR (*BKC) 100 UNITS/ML 10 UNITS IV PUSH (03:05)
[2024-06-10 03:15] LABS: Glucose Point of Care 92 mg/dl (65-105)
[2024-06-10 04:45] LABS: Basophils Percent Auto 0.6 % (0.2-1.2); Eosinophils Absolute Auto 0.2 K/mm3 (0-0.3); Eosinophils Percent Auto 3.2 % (0-4.4); Hematocrit 22.1 % (37.0-47.0); Hemoglobin 7.4 g/dL (12.0-15.0); Immature Granulocyte Absolute 0.04 K/mm3 (0.00-0.031); Immature Granulocyte Percent A 0.6 % (0-0.5); Lymphocytes Absolute Auto 1.25 K/mm3 (0.9-3.2); Lymphocytes Percent Auto 19.9 % (18.3-44.2); Mean Corpuscular HGB Conc 33.5 g/dl (32-36); Mean Corpuscular Hemoglobin 30.8 pg (26-34); Mean Corpuscular Volume 92.1 fl (80-100); Mean Platelet Volume 9.9 fl (7.4-10.4); Monocytes Absolute Auto 0.6 K/mm3 (0.1-0.6); Monocytes Percent Auto 9.2 % (2.6-8.5); Neutrophils Absolute Auto 4.2 K/mm3 (1.3-6.7); Neutrophils Percent Auto 66.5 % (45.5-73.1); Platelet Count Result 184 k/mm3 (150-375); Red Cell Distribution Width 14.6 % (11.5-14.5); White Blood Count 6.3 K/mm3 (4.5-10.0)
[2024-06-10 04:58] LABS: Alanine Aminotransferase 9 U/L (6-35); Albumin Level 3.5 g/dL (3.5-5.1); Alkaline Phosphatase 102 U/L (38-126); Anion Gap 11 mmol/L (4-12); Aspartate Amino Transferase 12 U/L (14-36); Bilirubin,Total 0.9 mg/dL (0.2-1.3); Blood Urea Nitrogen 104 mg/dL (7-17); Calcium 8.3 mg/dL (8.4-10.2); Carbon Dioxide 28 mmol/L (22-30); Chloride 94 mmol/L (98-107); Estimated Glomerular Filt Rate 6; Glucose 53 mg/dL (65-110); Magnesium 2.4 mg/dL (1.6-2.3); Phosphorus 5.7 mg/dL (2.5-4.5); Potassium 4.6 mmol/L (3.4-5.0); Sodium 133 mmol/L (137-145)
[2024-06-10 05:00] LABS: INR 1.3; Prothrombin Time 16.7 Seconds (11.1-14.7)
[2024-06-10 05:45] LABS: Glucose Point of Care 148 mg/dl (65-105)
[2024-06-10 05:45] LABS: Hepatitis B Surface Antigen Negative (Negative)
[2024-06-10 06:17] LABS: Hepatitis B Surface Anti Res Positive
[2024-06-10 06:52] LABS: Beta HCG Quantitative < 2.39 mIU/ML
[2024-06-10 08:40] LABS: MRSA (PCR) NOT DETECTED (NOT DETECTE)
[2024-06-10 09:35] LABS: Glucose Point of Care 98 mg/dl (65-105)
[2024-06-10 10:13] LABS: Glucose Point of Care 87 mg/dl (65-105)
[2024-06-10] MEDS: EPOETIN ALFA-EPBX 10,000 UNITS/ML VIAL 10000 UNITS IV PUSH (10:17)
--- NOTE | 2024-06-10 10:54 | PM.CNNEP ---
History of Present Illness Reason for Consult Consult date: 06/10/24 Reason for consult: end stage renal disease Chief Complaint Chief complaint: Upper GI Bleed/Elevated Troponin/End Stage Renal D [facility] Past Medical History Medical History Hypertension Kidney transplant rejection Surgical History Surgical History Kidney transplant recipient Family History Family History Unknown CKD (chronic kidney disease) Hypertension Diabetes mellitus Social History Social History Smoking status: Never smoker Alcohol intake: never Substance use: never Substance use type: does not use Do You Feel Safe in your Home?: Yes Lack of Transportation: No Lack of Food: Never True Current Housing: I Have Housing Concerned About Future Housing: No Difficulty Paying Gas/Electric Bills: No Difficulty Paying for Meds: No Currently Unemployed: YES Education: High School Diploma/GED Difficulty w/ Childcare or Family Care: No Spiritual care concerns: No Meds Home Medications and Allergies Home Medications Medication Instructions Recorded Confirmed Type calcium acetate(phosphat bind) 667 667 mg PO BID 06/09/24 06/09/24 History mg capsule nifedipine 90 mg tablet,extended 90 mg PO DAILY 06/09/24 06/09/24 History release Allergies Allergy/AdvReac Type Severity Reaction Status Date / Time No Known Allergies Allergy Verified 06/09/24 09:17 Vital Signs Vital Signs Temp Pulse Resp BP Pulse Ox O2 Del Method 06/10/24 10:45 69 164/98 H 06/10/24 10:30 70 163/100 H 06/10/24 10:15 71 170/104 H 06/10/24 10:00 72 06/10/24 10:00 75 175/104 H 06/10/24 09:45 76 164/100 H 06/10/24 09:30 72 165/99 H 06/10/24 09:15 68 164/95 H 06/10/24 09:00 74 174/102 H 06/10/24 08:45 76 150/93 H 06/10/24 08:37 98.7 F 80 18 154/96 H 06/10/24 08:00 98.7 F 70 16 142/92 H 98 06/10/24 06:00 73 06/10/24 04:13 98.2 F 70 16 148/96 H 100 06/10/24 04:00 73 06/10/24 04:00 Room Air 06/10/24 02:00 72 06/10/24 00:00 76 06/10/24 00:00 97.9 F 79 16 142/96 H 100 06/10/24 00:00 Room Air 06/09/24 23:35 97.9 F 79 16 142/96 H 100 06/09/24 22:35 97.7 F 83 16 154/94 H 100 06/09/24 22:00 72 Exam Narrative: GENERAL APPEARANCE: well developed well nourished female in no acute distress HEENT: normocephalic, atraumatic, normal conjunctiva and sclera, nares patient NECK: no lymphadenopathy, thyromegaly, or JVD MOUTH: normal lips, teeth, and gums CARDIOVASCULAR: RRR, normal S1 and S2, no rub RESPIRATORY: clear anteriorly ABDOMEN: soft, nontender, nondistended, positive bowel sounds present EXTREMITIES: no evidence of cyanosis, clubbing, or edema NEUROLOGICAL: alert and oriented x 3; CN II - XII intact bilaterally; no focal deficits noted Results Lab Results 06/10/24 18:50 06/10/24 04:24 Lab results: Most recent lab results Calcium 8.3 mg/dL (8.4-10.2) L 06/10/24 04:24 Phosphorus 5.7 mg/dL (2.5-4.5) H 06/10/24 04:24 Magnesium 2.4 mg/dL (1.6-2.3) H 06/10/24 04:24
[2024-06-10] MEDS: NIFEdipine 30 MG TAB.ER.24 90 MG PO (11:47)
[2024-06-10] MEDS: PANTOPRAZOLE SODIUM IV 40 MG VIAL IV PUSH ×2 (11:49→20:12)
[2024-06-10] MEDS: CALCIUM ACETATE 667 MG TABLET PO ×2 (11:49→18:17)
[2024-06-10 12:05] LABS: Glucose Point of Care 83 mg/dl (65-105)
--- NOTE | 2024-06-10 13:58 | P.PNIM_ITS ---
Progress Note: A&P Assessment and Plan (1) Symptomatic anemia: Code(s): D64.9 - Anemia, unspecified Status: Acute Assessment and Plan: Patient presents with hematemesis and hematochezia. Initial Hemoglobin 4.4 due to acute blood loss anemia. May have an underlying chronic anemia due to her renal disease but baseline HH unknown. She has received 3 units PRBCs in total. Hgb 7.4. No evidence of continued bleed ing. Repeat Hemoglobin 7.4. EGD planned but canceled today. Plan for EGD in the morning. Follow HH and transfuse as needed. (2) Hematemesis: Code(s): K92.0 - Hematemesis Status: Acute Assessment and Plan: Patient reports she had hematemesis with bloody stools then felt better until at dialysis on 06/09 IV pantoprazole 40 mg Q12HR started after initial load of 80 mg IV in ER Preg test negative. N/V has resolved. Consider rapid transit UGI bleed causing hematochezia. GI consulted with plan for EGD on 06/11 (3) Hematochezia: Code(s): K92.1 - Melena Status: Acute Assessment and Plan: As above (4) Type 2 AZ (myocardial infarction): Code(s): I21.A1 - Myocardial infarction type 2 Status: Acute Assessment and Plan: Patient denies any chest pain. Troponin elevated 0.122 and downtrending on repeat levels EKG showing sinus tachycardia, incomplete Rt BBB, borderline R-wave progression and borderline ST-T wave changes high lateral leads. No old EKG to compare. Repeat EKG showing similar findings. CXR reports need to evaluate for pericardial effusion Cardiology consulted and felt patient with Type II AZ Patient did not receive aspirin in ER Echocardiogram ordered Suspect elevated troponin related to ESRD, anemia and deand ischemia. (5) Hypertension: Code(s): I10 - Essential (primary) hypertension Status: Acute Assessment and Plan: Patient's blood pressure was reviewed on 06/10 Blood pressure remains poorly controlled. Possibly related to needing HD. Will continue current medications and monitor Tighter control if BP does not improve with HD (6) ESRD (end stage renal disease) on dialysis: Code(s): N18.6 - End stage renal disease; Z99.2 - Dependence on renal dialysis Status: Acute Assessment and Plan: Patient with ESRD on dialysis [id number] at [facility]. Unclear who her electrical systems engineer is. Nephrology consulted for HD which she had today. Continue HD per nephrology Plan DVT prophylaxis - SCDs Code status - full Subjective Date/time seen: 06/10/24 13:58 Interval history: 33yo female with HTN and ESRD on dialysis Saturday at [facility] in [place] who is admitted to hospital after feeling lightheaded and dizzy while at dialysis. Also reports hematemesis and bloody stool on 06/07/2024. Assuming care. Chart reviewed. Spoke through an agricultural extension officer. no CP or SOB. No n/v. Has been NPO today but feels hungry. Was having about 1 day of n/v that developed hematemesis and hematochezia. No recurrence. Menses is sporadic and had stopped for about 5 months but started back recently. Having small amounts of bleeding with menses. Exam Narrative: AF 98.0 154/90 81 16 100% ra Gen - NARD Chest - CTA bilaterally, nml RR CV - RRR S1/S2. Tele showing no significant dysrhythmias Abd - Soft, NT/ND, Positive BS Ext - No pedal edema, rt UE with thrill and bruit. Neuro - Alert and appropriate Psych - Nml mood and affect Skin - Warm and dry Objective Data Vital Signs Vital Signs: Vital Signs - 24 hr 06/09/24 14:12 06/09/24 14:29 06/09/24 15:12 Temperature 98.1 F 98.0 F 98.2 F Pulse Rate 79 79 79 Respiratory Rate 18 18 20 Blood Pressure 116/71 116/71 122/79 Pulse Oximetry 100 100 100 Oxygen Delivery 06/09/24 16:12 06/09/24 16:00 06/09/24 16:00 Temperature 98.0 F 98.0 F Pulse Rate 77 77 78 Respiratory Rate 20 20 Blood Pressure 119/74 119/74 Pulse Oximetry 100 100 Oxygen Delivery 06/09/24 18:00 06/09/24 17:15 06/09/24 20:12 Temperature 98.1 F 98.6 F Pulse Rate 81 82 72 Respiratory Rate 20 20 Blood Pressure 120/78 134/84 Pulse Oximetry 100 99 Oxygen Delivery 06/09/24 21:13 06/09/24 20:00 06/09/24 21:35 Temperature 98.5 F 98.3 F Pulse Rate 78 78 Respiratory Rate 18 16 Blood Pressure 138/87 151/89 H Pulse Oximetry 100 100 Oxygen Delivery Room Air 06/09/24 20:00 06/09/24 22:00 06/09/24 21:35 Temperature 98.3 F Pulse Rate 76 72 78 Respiratory Rate 16 Blood Pressure 151/89 H Pulse Oximetry 100 Oxygen Delivery 06/09/24 22:35 06/09/24 23:35 06/10/24 00:00 Temperature 97.7 F 97.9 F Pulse Rate 83 79 Respiratory Rate 16 16 Blood Pressure 154/94 H 142/96 H Pulse Oximetry 100 100 Oxygen Delivery Room Air 06/10/24 00:00 06/10/24 00:00 06/10/24 02:00 Temperature 97.9 F Pulse Rate 79 76 72 Respiratory Rate 16 Blood Pressure 142/96 H Pulse Oximetry 100 Oxygen Delivery 06/10/24 04:00 06/10/24 04:00 06/10/24 04:13 Temperature 98.2 F Pulse Rate 73 70 Respiratory Rate 16 Blood Pressure 148/96 H Pulse Oximetry 100 Oxygen Delivery Room Air 06/10/24 06:00 06/10/24 08:00 06/10/24 08:37 Temperature 98.7 F 98.7 F Pulse Rate 73 70 80 Respiratory Rate 16 18 Blood Pressure 142/92 H 154/96 H Pulse Oximetry 98 Oxygen Delivery 06/10/24 08:45 06/10/24 09:00 06/10/24 09:15 Temperature Pulse Rate 76 74 68 Respiratory Rate Blood Pressure 150/93 H 174/102 H 164/95 H Pulse Oximetry Oxygen Delivery 06/10/24 09:30 06/10/24 09:45 06/10/24 10:00 Temperature Pulse Rate 72 76 75 Respiratory Rate Blood Pressure 165/99 H 164/100 H 175/104 H Pulse Oximetry Oxygen Delivery 06/10/24 10:00 06/10/24 10:15 06/10/24 11:09 Temperature 98.4 F Pulse Rate 72 71 79 Respiratory Rate 18 Blood Pressure 170/104 H 165/100 H Pulse Oximetry Oxygen Delivery 06/10/24 10:30 06/10/24 10:45 06/10/24 11:00 Temperature Pulse Rate 70 69 73 Respiratory Rate Blood Pressure 163/100 H 164/98 H 181/102 H Pulse Oximetry Oxygen Delivery 06/10/24 12:00 06/10/24 12:00 Temperature 98 F Pulse Rate 76 81 Respiratory Rate 16 Blood Pressure 154/90 H Pulse Oximetry 100 Oxygen Delivery Intake/Output Intake/Output: Intake & Output 06/07/24 06/08/24 06/09/24 06/10/24 23:59 23:59 23:59 23:59 Intake Total 1564.5 1100.5 Output Total 3 1100 Balance 1561.5 0.5 Meds/Results Medications: Active Medications Generic Name Dose Route Start Last Admin Trade Name Freq PRN Reason Stop Dose Admin Calcium Acetate 667 mg 06/09/24 21:55 06/10/24 11:49 Calcium Acetate 667 Mg Tablet PO 667 mg BID NARENDRA Administration Dextrose 12.5 gm 06/10/24 01:52 06/10/24 05:03 Dextrose 50% 25 Gm/50 Ml Syringe IV PUSH 12.5 gm PRN PRN Administration Hypoglycemia Protocol Epoetin Jean-epbx 10,000 units 06/10/24 20:00 06/10/24 10:17 Epoetin Jean-Epbx 10,000 Units/Ml Vial IV PUSH 06/10/24 20:01 10,000 units ONCE ONE Administration Glucagon 1 mg 06/10/24 01:52 Glucagon For Inj 1 Mg Vial IM PRN PRN Hypoglycemia Protocol Glucose 15 gm 06/10/24 01:52 Glucose Oral Gel 15 Gm Of Glucse In 37.5 Gm Tube PO PRN PRN Hypoglycemia Protocol Albumin Human 50 mls @ 999 mls/hr 06/10/24 05:46 Albutein IVPB 07/10/24 05:45 Q10M PRN HYPOTENSION Nifedipine 90 mg 06/10/24 09:00 06/10/24 11:47 Nifedipine 30 Mg Tab.Er.24 PO 90 mg DAILY NARENDRA Administration Ondansetron HCl 4 mg 06/09/24 12:17 Ondansetron Inj 4 Mg/2 Ml Vial IV PUSH Q4H PRN Nausea Pantoprazole Sodium 40 mg 06/09/24 21:00 06/10/24 11:49 Pantoprazole Sodium Iv 40 Mg Vial IV PUSH 40 mg Q12HR NARENDRA Administration Perflutren Lipid Microsphere 0 ml 06/09/24 15:44 Perflutren Lipid Microspheres 1.5 Ml Vial Diluted To 10 Ml Total Volume IV PUSH 06/12/24 15:44 ONCE PRN adequate visualization Protocol Radiology Results: ITS Impressions Chest X-Ray 06/09/24 09:33 IMPRESSION: Right lower lobe atelectasis versus pneumonia with pleural effusion. Labs Labs: Laboratory Results - last 24 hr 06/09/24 06/09/24 06/09/24 09:48 14:54 18:15 WBC RBC Hgb 7.6 L D Hct 22.6 L MCV MCH MCHC RDW Plt Count MPV Immature Gran % (Auto) Neut % (Auto) Lymph % (Auto) [place] % (Auto) Eos % (Auto) Baso % (Auto) Lymph # (Auto) [place] # (Auto) Eos # (Auto) Baso # (Auto) Abs Immat Gran (auto) Absolute Neuts (auto) Absolute Nucleated RBC Nucleated RBC % PT INR Sodium 133 L Potassium 5.4 H Chloride 92 L Carbon Dioxide 29 Anion Gap 12 BUN 107 H Creatinine 7.30 H Estim Creat Clear Calc Not Reportable Estimated GFR 6 L Glucose 98 POC Capillary Glucose Calcium 8.2 L Phosphorus Magnesium Total Bilirubin AST ALT Alkaline Phosphatase Troponin I 0.112 H* Total Protein Albumin Beta HCG, Quant Nasal MRSA (PCR) Hep Bs Antigen Hep Bs Antibody Blood Type O Positive Antibody Screen Negative Crossmatch See Detail 06/09/24 06/09/24 06/10/24 20:35 21:21 01:08 WBC RBC Hgb 8.2 L Hct 23.6 L MCV MCH MCHC RDW Plt Count MPV Immature Gran % (Auto) Neut % (Auto) Lymph % (Auto) [place] % (Auto) Eos % (Auto) Baso % (Auto) Lymph # (Auto) [place] # (Auto) Eos # (Auto) Baso # (Auto) Abs Immat Gran (auto) Absolute Neuts (auto) Absolute Nucleated RBC Nucleated RBC % PT INR Sodium 132 L Potassium 5.4 H Chloride 93 L Carbon Dioxide 29 Anion Gap 10 BUN 104 H Creatinine 7.50 H Estim Creat Clear Calc Not Reportable Estimated GFR 6 L Glucose 93 POC Capillary Glucose 98 134 H Calcium 8.4 Phosphorus 6.3 H Magnesium Total Bilirubin AST ALT Alkaline Phosphatase Troponin I Total Protein Albumin 3.8 Beta HCG, Quant Nasal MRSA (PCR) Hep Bs Antigen Hep Bs Antibody Blood Type Antibody Screen Crossmatch 06/10/24 06/10/24 06/10/24 03:01 04:24 04:54 WBC 6.3 RBC 2.40 L Hgb 7.4 L Hct 22.1 L MCV 92.1 MCH 30.8 MCHC 33.5 RDW 14.6 H Plt Count 184 MPV 9.9 Immature Gran % (Auto) 0.6 H Neut % (Auto) 66.5 Lymph % (Auto) 19.9 [place] % (Auto) 9.2 H Eos % (Auto) 3.2 Baso % (Auto) 0.6 Lymph # (Auto) 1.25 [place] # (Auto) 0.6 Eos # (Auto) 0.2 Baso # (Auto) 0.0 Abs Immat Gran (auto) 0.04 H Absolute Neuts (auto) 4.2 Absolute Nucleated RBC 0.000 Nucleated RBC % 0.0 PT 16.7 H INR 1.3 Sodium 133 L Potassium 4.6 Chloride 94 L Carbon Dioxide 28 Anion Gap 11 BUN 104 H Creatinine 7.90 H Estim Creat Clear Calc Not Reportable Estimated GFR 6 L Glucose 53 L* POC Capillary Glucose 92 Calcium 8.3 L Phosphorus 5.7 H Magnesium 2.4 H Total Bilirubin 0.9 AST 12 L ALT 9 Alkaline Phosphatase 102 Troponin I Total Protein 7.0 Albumin 3.5 Beta HCG, Quant < 2.39 Nasal MRSA (PCR) Hep Bs Antigen Negative Hep Bs Antibody Positive Blood Type Antibody Screen Crossmatch 06/10/24 06/10/24 06/10/24 05:30 07:21 07:28 WBC RBC Hgb Hct MCV MCH MCHC RDW Plt Count MPV Immature Gran % (Auto) Neut % (Auto) Lymph % (Auto) [place] % (Auto) Eos % (Auto) Baso % (Auto) Lymph # (Auto) [place] # (Auto) Eos # (Auto) Baso # (Auto) Abs Immat Gran (auto) Absolute Neuts (auto) Absolute Nucleated RBC Nucleated RBC % PT INR Sodium Potassium Chloride Carbon Dioxide Anion Gap BUN Creatinine Estim Creat Clear Calc Estimated GFR Glucose POC Capillary Glucose 148 H 98 Calcium Phosphorus Magnesium Total Bilirubin AST ALT Alkaline Phosphatase Troponin I Total Protein Albumin Beta HCG, Quant Nasal MRSA (PCR) Not detected Hep Bs Antigen Hep Bs Antibody Blood Type Antibody Screen Crossmatch 06/10/24 06/10/24 10:07 11:42 WBC RBC Hgb Hct MCV MCH MCHC RDW Plt Count MPV Immature Gran % (Auto) Neut % (Auto) Lymph % (Auto) [place] % (Auto) Eos % (Auto) Baso % (Auto) Lymph # (Auto) [place] # (Auto) Eos # (Auto) Baso # (Auto) Abs Immat Gran (auto) Absolute Neuts (auto) Absolute Nucleated RBC Nucleated RBC % PT INR Sodium Potassium Chloride Carbon Dioxide Anion Gap BUN Creatinine Estim Creat Clear Calc Estimated GFR Glucose POC Capillary Glucose 87 83 Calcium Phosphorus Magnesium Total Bilirubin AST ALT Alkaline Phosphatase Troponin I Total Protein Albumin Beta HCG, Quant Nasal MRSA (PCR) Hep Bs Antigen Hep Bs Antibody Blood Type Antibody Screen Crossmatch
[2024-06-10 15:21] LABS: Glucose Point of Care 88 mg/dl (65-105)
[2024-06-10] MEDS: PERFLUTREN LIPID MICROSPHERES 1.5 ML VIAL DILUTED TO 10 ML TOTAL VOLUME IV PUSH (15:35)
--- NOTE | 2024-06-10 15:59 | IVDEFINITY ---
Prior to administration of IV Definity the patient was educated on the risks and benefits of the imaging enhancing agent including potential adverse side effects. The patient verbalized understanding. Allergies were verified. No exclusion criteria were identified and at least one of the following inclusion criteria were met: 1) physician request, 2) patient technically difficult to image (per the [place] [employer]ocardi[employer] guidelines of two or more segments not discernable within the apical view), or 3) questionable left ventricular function. ?
[2024-06-10 18:55] LABS: Hemoglobin 8.9 g/dL (12.0-15.0)
[2024-06-10 19:05] LABS: Glucose Point of Care 91 mg/dl (65-105)
[2024-06-10 20:28] LABS: Glucose Point of Care 197 mg/dl (65-105)
[2024-06-11] VITALS (30 sets, daily range): BP systolic 134–178; BP diastolic 88–107; PULSE 67–94; RESP 16–20; TEMP 36.1–37.1; O2SAT 72–100
[2024-06-11 00:37] LABS: Hematocrit 25.3 % (37.0-47.0); Hemoglobin 8.6 g/dL (12.0-15.0)
--- NOTE | 2024-06-11 00:46 | PC.NURSE ---
This RN used tire tester for patient care and assessments on nightshifts 06/09 and 06/10.
[2024-06-11 05:25] LABS: Basophils Absolute Auto 0.1 K/mm3 (0.0-0.1); Eosinophils Absolute Auto 0.2 K/mm3 (0-0.3); Hematocrit 22.7 % (37.0-47.0); Hemoglobin 7.7 g/dL (12.0-15.0); Immature Granulocyte Absolute 0.03 K/mm3 (0.00-0.031); Immature Granulocyte Percent A 0.5 % (0-0.5); Lymphocytes Absolute Auto 1.01 K/mm3 (0.9-3.2); Lymphocytes Percent Auto 16.8 % (18.3-44.2); Mean Corpuscular HGB Conc 33.9 g/dl (32-36); Mean Corpuscular Volume 94.2 fl (80-100); Mean Platelet Volume 10.2 fl (7.4-10.4); Monocytes Absolute Auto 0.5 K/mm3 (0.1-0.6); Monocytes Percent Auto 8.5 % (2.6-8.5); Neutrophils Absolute Auto 4.2 K/mm3 (1.3-6.7); Neutrophils Percent Auto 69.2 % (45.5-73.1); Platelet Count Result 201 k/mm3 (150-375); Red Blood Count 2.41 M/mm3 (4.2-5.4); Red Cell Distribution Width 14.9 % (11.5-14.5)
[2024-06-11 06:18] LABS: Albumin Level 3.5 g/dL (3.5-5.1); Anion Gap 9 mmol/L (4-12); Blood Urea Nitrogen 54 mg/dL (7-17); Calcium 8.2 mg/dL (8.4-10.2); Carbon Dioxide 28 mmol/L (22-30); Chloride 101 mmol/L (98-107); Estimated Glomerular Filt Rate 8; Glucose 86 mg/dL (65-110); Magnesium 2.4 mg/dL (1.6-2.3); Phosphorus 5.5 mg/dL (2.5-4.5); Sodium 138 mmol/L (137-145)
[2024-06-11 06:50] LABS: Glucose Point of Care 86 mg/dl (65-105)
--- NOTE | 2024-06-11 06:58 | WPDANESEPPF ---
Anes - Initial Pre Proc Eval Procedure: Operation Date: 06/11/24 08:00 Proposed Procedures p Esophagogastroduodenoscopy - [place] Gleason MD Date/Time: 06/11/24 06:58 Surgeon: Fatou Hale MD Pre Op Diagnosis: Upper GI Bleed/Elevated Troponin/End Stage Renal D Patient Data Age: 33 Gender: F Height: 1.5 m Weight: 56 kg Last Vital Signs Temp 98.7 F 06/11/24 04:28 Pulse 76 06/11/24 06:00 Resp 16 06/11/24 04:28 BP 142/91 H 06/11/24 04:28 Pulse Ox 99 06/11/24 04:28 O2 Del Method Room Air 06/11/24 04:00 Allergies Allergy/AdvReac Type Severity Reaction Status Date / Time No Known Allergies Allergy Verified 06/09/24 09:17 Home Medications Medication Instructions Recorded Confirmed Type calcium acetate(phosphat bind) 667 667 mg PO BID 06/09/24 06/09/24 History mg capsule nifedipine 90 mg tablet,extended 90 mg PO DAILY 06/09/24 06/09/24 History release Laboratory Tests 06/10/24 06/10/24 06/10/24 07:21 07:28 10:07 WBC RBC Hgb Hct MCV MCH MCHC RDW Plt Count MPV Immature Gran % (Auto) Neut % (Auto) Lymph % (Auto) [place] % (Auto) Eos % (Auto) Baso % (Auto) Lymph # (Auto) [place] # (Auto) Eos # (Auto) Baso # (Auto) Abs Immat Gran (auto) Absolute Neuts (auto) Absolute Nucleated RBC Nucleated RBC % Sodium Potassium Chloride Carbon Dioxide Anion Gap BUN Creatinine Estim Creat Clear Calc Estimated GFR Glucose POC Capillary Glucose 98 mg/dl 87 mg/dl (65-105) (65-105) Calcium Phosphorus Magnesium Albumin Nasal MRSA (PCR) Not detected (NOT DETECTE) 06/10/24 06/10/24 06/10/24 11:42 15:16 15:58 WBC RBC Hgb Hct MCV MCH MCHC RDW Plt Count MPV Immature Gran % (Auto) Neut % (Auto) Lymph % (Auto) [place] % (Auto) Eos % (Auto) Baso % (Auto) Lymph # (Auto) [place] # (Auto) Eos # (Auto) Baso # (Auto) Abs Immat Gran (auto) Absolute Neuts (auto) Absolute Nucleated RBC Nucleated RBC % Sodium Potassium Chloride Carbon Dioxide Anion Gap BUN Creatinine Estim Creat Clear Calc Estimated GFR Glucose POC Capillary Glucose 83 mg/dl 88 mg/dl 91 mg/dl (65-105) (65-105) (65-105) Calcium Phosphorus Magnesium Albumin Nasal MRSA (PCR) 06/10/24 06/10/24 06/11/24 18:50 20:12 00:06 WBC RBC Hgb 8.9 L g/dL 8.6 L g/dL (12.0-15.0) (12.0-15.0) Hct 26.0 L % 25.3 L % (37.0-47.0) (37.0-47.0) MCV MCH MCHC RDW Plt Count MPV Immature Gran % (Auto) Neut % (Auto) Lymph % (Auto) [place] % (Auto) Eos % (Auto) Baso % (Auto) Lymph # (Auto) [place] # (Auto) Eos # (Auto) Baso # (Auto) Abs Immat Gran (auto) Absolute Neuts (auto) Absolute Nucleated RBC Nucleated RBC % Sodium Potassium Chloride Carbon Dioxide Anion Gap BUN Creatinine Estim Creat Clear Calc Estimated GFR Glucose POC Capillary Glucose 197 H mg/dl (65-105) Calcium Phosphorus Magnesium Albumin Nasal MRSA (PCR) 06/11/24 06/11/24 04:53 06:45 WBC 6.0 K/mm3 (4.5-10.0) RBC 2.41 L M/mm3 (4.2-5.4) Hgb 7.7 L g/dL (12.0-15.0) Hct 22.7 L % (37.0-47.0) MCV 94.2 fl (80-100) MCH 32.0 pg (26-34) MCHC 33.9 g/dl (32-36) RDW 14.9 H % (11.5-14.5) Plt Count 201 k/mm3 (150-375) MPV 10.2 fl (7.4-10.4) Immature Gran % (Auto) 0.5 % (0-0.5) Neut % (Auto) 69.2 % (45.5-73.1) Lymph % (Auto) 16.8 L % (18.3-44.2) [place] % (Auto) 8.5 % (2.6-8.5) Eos % (Auto) 4.0 % (0-4.4) Baso % (Auto) 1.0 % (0.2-1.2) Lymph # (Auto) 1.01 K/mm3 (0.9-3.2) [place] # (Auto) 0.5 K/mm3 (0.1-0.6) Eos # (Auto) 0.2 K/mm3 (0-0.3) Baso # (Auto) 0.1 K/mm3 (0.0-0.1) Abs Immat Gran (auto) 0.03 K/mm3 (0.00-0.031) Absolute Neuts (auto) 4.2 K/mm3 (1.3-6.7) Absolute Nucleated RBC 0.000 K/mm3 (0.0-0.012) Nucleated RBC % 0.0 % (0.0-0.2) Sodium 138 mmol/L (137-145) Potassium 5.0 mmol/L (3.4-5.0) Chloride 101 mmol/L (98-107) Carbon Dioxide 28 mmol/L (22-30) Anion Gap 9 mmol/L (4-12) BUN 54 H D mg/dL (7-17) Creatinine 6.20 H mg/dL (0.7-1.0) Estim Creat Clear Calc Not Reportable Estimated GFR 8 L (59 - ) Glucose 86 mg/dL (65-110) POC Capillary Glucose 86 mg/dl (65-105) Calcium 8.2 L mg/dL (8.4-10.2) Phosphorus 5.5 H mg/dL (2.5-4.5) Magnesium 2.4 H mg/dL (1.6-2.3) Albumin 3.5 g/dL (3.5-5.1) Nasal MRSA (PCR) Patient hx anesthesia problems: none Family hx anesthesia problems: none Results Review: All pre-operative results and documents have been reviewed as part of the pre-operative evaluation. [facility] Past Medical History Medical History Hypertension Kidney transplant rejection Surgical History Surgical History Kidney transplant recipient Family History Family History Unknown CKD (chronic kidney disease) Hypertension Diabetes mellitus Social History Social History Smoking status: Never smoker Alcohol intake: never Substance use: never Substance use type: does not use Do You Feel Safe in your Home?: Yes Lack of Transportation: No Lack of Food: Never True Current Housing: I Have Housing Concerned About Future Housing: No Difficulty Paying Gas/Electric Bills: No Difficulty Paying for Meds: No Currently Unemployed: YES Education: High School Diploma/GED Difficulty w/ Childcare or Family Care: No Spiritual care concerns: No Anes - Eval Final PreProcedure Day of Procedure 06/11/24 06:58 Patient weight: normal Heart: regular rate and rhythm Lungs: clear to auscultation Airway: Mallampati scale class II Neurological: alert and oriented Last oral intake: >/= 8 hours ASA classification: IV Emergent: no Anesthetic plan: proceed Anesthesia type and monitoring: general GIVS and standard monitoring Results Review: All pre-operative results and documents have been reviewed as part of the pre-operative evaluation. Hx reviewed. ESRD, HD yesterday. Hx hematemesis, now stable without recent episodes for EGD. Informed Consent: The patient's anesthetic plan and its attendant risks and benefits were discussed with the patient/family/POA. Questions were solicited and answers provided to the satisfaction of the patient/family/POA.
[2024-06-11] MEDS: SODIUM CHLORIDE 0.9% IV 500 ML 10 ML IV CONT (07:20)
--- NOTE | 2024-06-11 07:30 | SUR.PREOP ---
Program Architect Dennis #[id number] used for pre op assessment and with explaining consent signature
--- NOTE | 2024-06-11 08:06 | P.PNGI_ITS ---
Progress Note: A&P Assessment and Plan (1) Hematochezia: Code(s): K92.1 - Melena Status: Acute Assessment and Plan: will perform EGD to rule out peptic ulcer disease as a cause of her recent episode of hematemesis and melena. (2) Type 2 GA (myocardial infarction): Code(s): I21.A1 - Myocardial infarction type 2 Status: Acute Subjective Date/time seen: 06/11/24 08:06 Interval history: The patient is here for EGD. She did not have further episodes of melena. S Review of Systems Review of Systems: All systems reviewed & are unremarkable except as noted in HPI and below Exam Narrative: GENERAL APPEARANCE: well developed well nourished female in no acute distress HEENT: normocephalic, atraumatic, normal conjunctiva and sclera, nares patient NECK: no lymphadenopathy, thyromegaly, or JVD MOUTH: normal lips, teeth, and gums CARDIOVASCULAR: RRR, normal S1 and S2, no rub RESPIRATORY: clear anteriorly ABDOMEN: soft, nontender, nondistended, positive bowel sounds present EXTREMITIES: no evidence of cyanosis, clubbing, or edema NEUROLOGICAL: alert and oriented x 3; CN II - XII intact bilaterally; no focal deficits noted Objective Data Vital Signs Vital Signs: Vital Signs - 24 hr 06/10/24 08:37 06/10/24 08:45 06/10/24 09:00 Temperature 98.7 F Pulse Rate 80 76 74 Respiratory Rate 18 Blood Pressure 154/96 H 150/93 H 174/102 H Pulse Oximetry Oxygen Delivery 06/10/24 09:15 06/10/24 09:30 06/10/24 09:45 Temperature Pulse Rate 68 72 76 Respiratory Rate Blood Pressure 164/95 H 165/99 H 164/100 H Pulse Oximetry Oxygen Delivery 06/10/24 10:00 06/10/24 10:00 06/10/24 10:15 Temperature Pulse Rate 75 72 71 Respiratory Rate Blood Pressure 175/104 H 170/104 H Pulse Oximetry Oxygen Delivery 06/10/24 11:09 06/10/24 10:30 06/10/24 10:45 Temperature 98.4 F Pulse Rate 79 70 69 Respiratory Rate 18 Blood Pressure 165/100 H 163/100 H 164/98 H Pulse Oximetry Oxygen Delivery 06/10/24 11:00 06/10/24 12:00 06/10/24 12:00 Temperature 98 F Pulse Rate 73 76 81 Respiratory Rate 16 Blood Pressure 181/102 H 154/90 H Pulse Oximetry 100 Oxygen Delivery 06/10/24 16:00 06/10/24 16:00 06/10/24 14:00 Temperature 98.5 F Pulse Rate 85 84 82 Respiratory Rate 16 Blood Pressure 128/80 Pulse Oximetry 91 Oxygen Delivery 06/10/24 18:00 06/10/24 20:31 06/10/24 20:00 Temperature 98.4 F Pulse Rate 92 78 Respiratory Rate 16 Blood Pressure 133/82 Pulse Oximetry 99 Oxygen Delivery Room Air 06/10/24 20:00 06/10/24 22:00 06/10/24 23:55 Temperature 98.1 F Pulse Rate 78 76 76 Respiratory Rate 16 Blood Pressure 126/88 Pulse Oximetry 100 Oxygen Delivery 06/11/24 00:00 06/11/24 00:00 06/11/24 02:00 Temperature Pulse Rate 71 74 Respiratory Rate Blood Pressure Pulse Oximetry Oxygen Delivery Room Air 06/11/24 04:28 06/11/24 04:00 06/11/24 04:00 Temperature 98.7 F Pulse Rate 78 75 Respiratory Rate 16 Blood Pressure 142/91 H Pulse Oximetry 99 Oxygen Delivery Room Air 06/11/24 06:00 06/11/24 07:17 Temperature 97.9 F Pulse Rate 76 82 Respiratory Rate 19 Blood Pressure 148/95 H Pulse Oximetry 100 Oxygen Delivery Room Air Intake/Output Intake/Output: Intake & Output 06/08/24 06/09/24 06/10/24 06/11/24 23:59 23:59 23:59 23:59 Intake Total 1564.5 1400.5 240 Output Total 3 1100 Balance 1561.5 300.5 240 Meds/Results Medications: Active Medications Generic Name Dose Route Start Last Admin Trade Name Freq PRN Reason Stop Dose Admin Calcium Acetate 667 mg 06/09/24 21:55 06/10/24 18:17 Calcium Acetate 667 Mg Tablet PO 667 mg BID NARENDRA Administration Dextrose 12.5 gm 06/10/24 01:52 06/10/24 05:03 Dextrose 50% 25 Gm/50 Ml Syringe IV PUSH 12.5 gm PRN PRN Administration Hypoglycemia Protocol Epoetin Jean-epbx 20,000 units 06/11/24 20:00 Epoetin Jean-Epbx 20,000 Units/Ml Vial IV PUSH 06/11/24 20:01 ONCE ONE Glucagon 1 mg 06/10/24 01:52 Glucagon For Inj 1 Mg Vial IM PRN PRN Hypoglycemia Protocol Glucose 15 gm 06/10/24 01:52 Glucose Oral Gel 15 Gm Of Glucse In 37.5 Gm Tube PO PRN PRN Hypoglycemia Protocol Albumin Human 50 mls @ 999 mls/hr 06/10/24 05:46 Albutein IVPB 07/10/24 05:45 Q10M PRN HYPOTENSION Sodium Chloride 500 mls @ 10 mls/hr 06/11/24 07:15 06/11/24 07:20 Normal Saline Iv IV CONT 10 mls/hr .Q24H NARENDRA Administration Nifedipine 90 mg 06/10/24 09:00 06/10/24 11:47 Nifedipine 30 Mg Tab.Er.24 PO 90 mg DAILY NARENDRA Administration Ondansetron HCl 4 mg 06/09/24 12:17 Ondansetron Inj 4 Mg/2 Ml Vial IV PUSH Q4H PRN Nausea Pantoprazole Sodium 40 mg 06/09/24 21:00 06/10/24 20:12 Pantoprazole Sodium Iv 40 Mg Vial IV PUSH 40 mg Q12HR NARENDRA Administration Radiology Results: ITS Impressions Chest X-Ray 06/09/24 09:33 IMPRESSION: Right lower lobe atelectasis versus pneumonia with pleural effusion. Labs Labs: Laboratory Results - last 24 hr 06/10/24 06/10/24 06/10/24 07:21 07:28 10:07 WBC RBC Hgb Hct MCV MCH MCHC RDW Plt Count MPV Immature Gran % (Auto) Neut % (Auto) Lymph % (Auto) [place] % (Auto) Eos % (Auto) Baso % (Auto) Lymph # (Auto) [place] # (Auto) Eos # (Auto) Baso # (Auto) Abs Immat Gran (auto) Absolute Neuts (auto) Absolute Nucleated RBC Nucleated RBC % Sodium Potassium Chloride Carbon Dioxide Anion Gap BUN Creatinine Estim Creat Clear Calc Estimated GFR Glucose POC Capillary Glucose 98 87 Calcium Phosphorus Magnesium Albumin Nasal MRSA (PCR) Not detected 06/10/24 06/10/24 06/10/24 11:42 15:16 15:58 WBC RBC Hgb Hct MCV MCH MCHC RDW Plt Count MPV Immature Gran % (Auto) Neut % (Auto) Lymph % (Auto) [place] % (Auto) Eos % (Auto) Baso % (Auto) Lymph # (Auto) [place] # (Auto) Eos # (Auto) Baso # (Auto) Abs Immat Gran (auto) Absolute Neuts (auto) Absolute Nucleated RBC Nucleated RBC % Sodium Potassium Chloride Carbon Dioxide Anion Gap BUN Creatinine Estim Creat Clear Calc Estimated GFR Glucose POC Capillary Glucose 83 88 91 Calcium Phosphorus Magnesium Albumin Nasal MRSA (PCR) 06/10/24 06/10/24 06/11/24 18:50 20:12 00:06 WBC RBC Hgb 8.9 L 8.6 L Hct 26.0 L 25.3 L MCV MCH MCHC RDW Plt Count MPV Immature Gran % (Auto) Neut % (Auto) Lymph % (Auto) [place] % (Auto) Eos % (Auto) Baso % (Auto) Lymph # (Auto) [place] # (Auto) Eos # (Auto) Baso # (Auto) Abs Immat Gran (auto) Absolute Neuts (auto) Absolute Nucleated RBC Nucleated RBC % Sodium Potassium Chloride Carbon Dioxide Anion Gap BUN Creatinine Estim Creat Clear Calc Estimated GFR Glucose POC Capillary Glucose 197 H Calcium Phosphorus Magnesium Albumin Nasal MRSA (PCR) 06/11/24 06/11/24 04:53 06:45 WBC 6.0 RBC 2.41 L Hgb 7.7 L Hct 22.7 L MCV 94.2 MCH 32.0 MCHC 33.9 RDW 14.9 H Plt Count 201 MPV 10.2 Immature Gran % (Auto) 0.5 Neut % (Auto) 69.2 Lymph % (Auto) 16.8 L [place] % (Auto) 8.5 Eos % (Auto) 4.0 Baso % (Auto) 1.0 Lymph # (Auto) 1.01 [place] # (Auto) 0.5 Eos # (Auto) 0.2 Baso # (Auto) 0.1 Abs Immat Gran (auto) 0.03 Absolute Neuts (auto) 4.2 Absolute Nucleated RBC 0.000 Nucleated RBC % 0.0 Sodium 138 Potassium 5.0 Chloride 101 Carbon Dioxide 28 Anion Gap 9 BUN 54 H D Creatinine 6.20 H Estim Creat Clear Calc Not Reportable Estimated GFR 8 L Glucose 86 POC Capillary Glucose 86 Calcium 8.2 L Phosphorus 5.5 H Magnesium 2.4 H Albumin 3.5 Nasal MRSA (PCR)
--- NOTE | 2024-06-11 08:27 | P.PNGI_ITS ---
Progress Note: A&P Assessment and Plan (1) Hematemesis: Code(s): K92.0 - Hematemesis Status: Acute Assessment and Plan: Please see EGD report. There were a few gastric erosions, no neoplasm no peptic ulcer or acute lesions such as Cathleen Espinal tear. IV pantoprazole should be discontinued. Biopsies taken for H pylori, will report if positive for appropriate treatment. She can be discharged home from our standpoint, and followed up as an outpatient. Subjective Date/time seen: 06/11/24 08:27 Objective Data Vital Signs Vital Signs: Vital Signs - 24 hr 06/10/24 08:37 06/10/24 08:45 06/10/24 09:00 Temperature 98.7 F Pulse Rate 80 76 74 Respiratory Rate 18 Blood Pressure 154/96 H 150/93 H 174/102 H Pulse Oximetry Oxygen Delivery 06/10/24 09:15 06/10/24 09:30 06/10/24 09:45 Temperature Pulse Rate 68 72 76 Respiratory Rate Blood Pressure 164/95 H 165/99 H 164/100 H Pulse Oximetry Oxygen Delivery 06/10/24 10:00 06/10/24 10:00 06/10/24 10:15 Temperature Pulse Rate 75 72 71 Respiratory Rate Blood Pressure 175/104 H 170/104 H Pulse Oximetry Oxygen Delivery 06/10/24 11:09 06/10/24 10:30 06/10/24 10:45 Temperature 98.4 F Pulse Rate 79 70 69 Respiratory Rate 18 Blood Pressure 165/100 H 163/100 H 164/98 H Pulse Oximetry Oxygen Delivery 06/10/24 11:00 06/10/24 12:00 06/10/24 12:00 Temperature 98 F Pulse Rate 73 76 81 Respiratory Rate 16 Blood Pressure 181/102 H 154/90 H Pulse Oximetry 100 Oxygen Delivery 06/10/24 16:00 06/10/24 16:00 06/10/24 14:00 Temperature 98.5 F Pulse Rate 85 84 82 Respiratory Rate 16 Blood Pressure 128/80 Pulse Oximetry 91 Oxygen Delivery 06/10/24 18:00 06/10/24 20:31 06/10/24 20:00 Temperature 98.4 F Pulse Rate 92 78 Respiratory Rate 16 Blood Pressure 133/82 Pulse Oximetry 99 Oxygen Delivery Room Air 06/10/24 20:00 06/10/24 22:00 06/10/24 23:55 Temperature 98.1 F Pulse Rate 78 76 76 Respiratory Rate 16 Blood Pressure 126/88 Pulse Oximetry 100 Oxygen Delivery 06/11/24 00:00 06/11/24 00:00 06/11/24 02:00 Temperature Pulse Rate 71 74 Respiratory Rate Blood Pressure Pulse Oximetry Oxygen Delivery Room Air 06/11/24 04:28 06/11/24 04:00 06/11/24 04:00 Temperature 98.7 F Pulse Rate 78 75 Respiratory Rate 16 Blood Pressure 142/91 H Pulse Oximetry 99 Oxygen Delivery Room Air 06/11/24 06:00 06/11/24 07:17 06/11/24 06:40 Temperature 97.9 F 98.7 F Pulse Rate 76 82 76 Respiratory Rate 19 16 Blood Pressure 148/95 H 144/92 H Pulse Oximetry 100 98 Oxygen Delivery Room Air 06/11/24 08:23 Temperature Pulse Rate 76 Respiratory Rate 20 Blood Pressure 140/98 H Pulse Oximetry 92 Oxygen Delivery Room Air Intake/Output Intake/Output: Intake & Output 06/08/24 06/09/24 06/10/24 06/11/24 23:59 23:59 23:59 23:59 Intake Total 1564.5 1400.5 240 Output Total 3 1100 Balance 1561.5 300.5 240 Meds/Results Medications: Active Medications Generic Name Dose Route Start Last Admin Trade Name Freq PRN Reason Stop Dose Admin Calcium Acetate 667 mg 06/09/24 21:55 06/10/24 18:17 Calcium Acetate 667 Mg Tablet PO 667 mg BID NARENDRA Administration Dextrose 12.5 gm 06/10/24 01:52 06/10/24 05:03 Dextrose 50% 25 Gm/50 Ml Syringe IV PUSH 12.5 gm PRN PRN Administration Hypoglycemia Protocol Epoetin Jean-epbx 20,000 units 06/11/24 20:00 Epoetin Jean-Epbx 20,000 Units/Ml Vial IV PUSH 06/11/24 20:01 ONCE ONE Glucagon 1 mg 06/10/24 01:52 Glucagon For Inj 1 Mg Vial IM PRN PRN Hypoglycemia Protocol Glucose 15 gm 06/10/24 01:52 Glucose Oral Gel 15 Gm Of Glucse In 37.5 Gm Tube PO PRN PRN Hypoglycemia Protocol Albumin Human 50 mls @ 999 mls/hr 06/10/24 05:46 Albutein IVPB 07/10/24 05:45 Q10M PRN HYPOTENSION Sodium Chloride 500 mls @ 10 mls/hr 06/11/24 07:15 06/11/24 08:23 Normal Saline Iv IV CONT 10 mls/hr .Q24H NARENDRA Titration Nifedipine 90 mg 06/10/24 09:00 06/10/24 11:47 Nifedipine 30 Mg Tab.Er.24 PO 90 mg DAILY NARENDRA Administration Ondansetron HCl 4 mg 06/09/24 12:17 Ondansetron Inj 4 Mg/2 Ml Vial IV PUSH Q4H PRN Nausea Pantoprazole Sodium 40 mg 06/09/24 21:00 06/10/24 20:12 Pantoprazole Sodium Iv 40 Mg Vial IV PUSH 40 mg Q12HR NARENDRA Administration Radiology Results: ITS Impressions Chest X-Ray 06/09/24 09:33 IMPRESSION: Right lower lobe atelectasis versus pneumonia with pleural effusion. Labs Labs: Laboratory Results - last 24 hr 06/10/24 06/10/24 06/10/24 07:21 07:28 10:07 WBC RBC Hgb Hct MCV MCH MCHC RDW Plt Count MPV Immature Gran % (Auto) Neut % (Auto) Lymph % (Auto) [place] % (Auto) Eos % (Auto) Baso % (Auto) Lymph # (Auto) [place] # (Auto) Eos # (Auto) Baso # (Auto) Abs Immat Gran (auto) Absolute Neuts (auto) Absolute Nucleated RBC Nucleated RBC % Sodium Potassium Chloride Carbon Dioxide Anion Gap BUN Creatinine Estim Creat Clear Calc Estimated GFR Glucose POC Capillary Glucose 98 87 Calcium Phosphorus Magnesium Albumin Nasal MRSA (PCR) Not detected 06/10/24 06/10/24 06/10/24 11:42 15:16 15:58 WBC RBC Hgb Hct MCV MCH MCHC RDW Plt Count MPV Immature Gran % (Auto) Neut % (Auto) Lymph % (Auto) [place] % (Auto) Eos % (Auto) Baso % (Auto) Lymph # (Auto) [place] # (Auto) Eos # (Auto) Baso # (Auto) Abs Immat Gran (auto) Absolute Neuts (auto) Absolute Nucleated RBC Nucleated RBC % Sodium Potassium Chloride Carbon Dioxide Anion Gap BUN Creatinine Estim Creat Clear Calc Estimated GFR Glucose POC Capillary Glucose 83 88 91 Calcium Phosphorus Magnesium Albumin Nasal MRSA (PCR) 06/10/24 06/10/24 06/11/24 18:50 20:12 00:06 WBC RBC Hgb 8.9 L 8.6 L Hct 26.0 L 25.3 L MCV MCH MCHC RDW Plt Count MPV Immature Gran % (Auto) Neut % (Auto) Lymph % (Auto) [place] % (Auto) Eos % (Auto) Baso % (Auto) Lymph # (Auto) [place] # (Auto) Eos # (Auto) Baso # (Auto) Abs Immat Gran (auto) Absolute Neuts (auto) Absolute Nucleated RBC Nucleated RBC % Sodium Potassium Chloride Carbon Dioxide Anion Gap BUN Creatinine Estim Creat Clear Calc Estimated GFR Glucose POC Capillary Glucose 197 H Calcium Phosphorus Magnesium Albumin Nasal MRSA (PCR) 06/11/24 06/11/24 04:53 06:45 WBC 6.0 RBC 2.41 L Hgb 7.7 L Hct 22.7 L MCV 94.2 MCH 32.0 MCHC 33.9 RDW 14.9 H Plt Count 201 MPV 10.2 Immature Gran % (Auto) 0.5 Neut % (Auto) 69.2 Lymph % (Auto) 16.8 L [place] % (Auto) 8.5 Eos % (Auto) 4.0 Baso % (Auto) 1.0 Lymph # (Auto) 1.01 [place] # (Auto) 0.5 Eos # (Auto) 0.2 Baso # (Auto) 0.1 Abs Immat Gran (auto) 0.03 Absolute Neuts (auto) 4.2 Absolute Nucleated RBC 0.000 Nucleated RBC % 0.0 Sodium 138 Potassium 5.0 Chloride 101 Carbon Dioxide 28 Anion Gap 9 BUN 54 H D Creatinine 6.20 H Estim Creat Clear Calc Not Reportable Estimated GFR 8 L Glucose 86 POC Capillary Glucose 86 Calcium 8.2 L Phosphorus 5.5 H Magnesium 2.4 H Albumin 3.5 Nasal MRSA (PCR)
[2024-06-11] MEDS: SODIUM CHLORIDE 0.9% IV 1,000 ML 999 ML IV CONT (08:30)
--- NOTE | 2024-06-11 10:38 | PM.PNNEP ---
Subjective Date/time seen: 06/11/24 10:38 Interval history: Follow-up for end stage renal disease on hemodialysis. Tolerating dialysis treatment at the time of my visit (seen on HD at 10:28AM); s/p EGD earlier this morning as well and did well with this procedure with findings noted; resting comfortably when seen; BP running a little on the high side currently; no issues/events overnight or earlier this morning. Exam Narrative: General: WD/WN female in NAD Heart: normal S1 and S2; no rub Lungs: decreased at bases Abdomen: soft, nontender, nondistended, positive bowel sounds Extremities: no cyanosis or clubbing; no edema Skin: warm and dry Objective Data Vital Signs Vital Signs: Vital Signs Temp Pulse Resp BP Pulse Ox O2 Del Method 06/11/24 10:00 72 06/11/24 09:00 72 06/11/24 09:00 Room Air 06/11/24 08:00 98.7 F 76 16 144/92 H 98 06/11/24 08:43 72 20 139/98 H 95 Room Air 06/11/24 08:33 74 20 134/94 H 95 Room Air 06/11/24 08:23 76 20 140/98 H 92 Room Air 06/11/24 06:40 98.7 F 76 16 144/92 H 98 06/11/24 07:17 97.9 F 82 19 148/95 H 100 Room Air 06/11/24 06:00 76 06/11/24 04:00 75 06/11/24 04:00 Room Air 06/11/24 04:28 98.7 F 78 16 142/91 H 99 06/11/24 02:00 74 06/11/24 00:00 71 06/11/24 00:00 Room Air 06/10/24 23:55 98.1 F 76 16 126/88 100 06/10/24 22:00 76 06/10/24 20:00 78 06/10/24 20:00 Room Air 06/10/24 20:31 98.4 F 78 16 133/82 99 06/10/24 18:00 92 06/10/24 14:00 82 06/10/24 16:00 84 06/10/24 16:00 98.5 F 85 16 128/80 91 06/10/24 12:00 98 F 81 16 154/90 H 100 06/10/24 12:00 76 06/10/24 11:00 73 181/102 H 06/10/24 11:09 98.4 F 79 18 165/100 H Intake/Output Intake/Output: Intake & Output 06/08/24 06/09/24 06/10/24 06/11/24 23:59 23:59 23:59 23:59 Intake Total 1564.5 1400.5 240 Output Total 3 1100 Balance 1561.5 300.5 240 Meds/Results Medications: Active Medications Generic Name Dose Route Start Last Admin Trade Name Freq PRN Reason Stop Dose Admin Calcium Acetate 667 mg 06/09/24 21:55 06/11/24 09:19 Calcium Acetate 667 Mg Tablet PO Not Given BID NAREDNRA Dextrose 12.5 gm 06/10/24 01:52 06/10/24 05:03 Dextrose 50% 25 Gm/50 Ml Syringe IV PUSH 12.5 gm PRN PRN Administration Hypoglycemia Protocol Epoetin Jean-epbx 20,000 units 06/11/24 20:00 Epoetin Jean-Epbx 20,000 Units/Ml Vial IV PUSH 06/11/24 20:01 ONCE ONE Glucagon 1 mg 06/10/24 01:52 Glucagon For Inj 1 Mg Vial IM PRN PRN Hypoglycemia Protocol Glucose 15 gm 06/10/24 01:52 Glucose Oral Gel 15 Gm Of Glucse In 37.5 Gm Tube PO PRN PRN Hypoglycemia Protocol Albumin Human 50 mls @ 999 mls/hr 06/10/24 05:46 Albutein IVPB 07/10/24 05:45 Q10M PRN HYPOTENSION Nifedipine 90 mg 06/10/24 09:00 06/10/24 11:47 Nifedipine 30 Mg Tab.Er.24 PO 90 mg DAILY NARENDRA Administration Ondansetron HCl 4 mg 06/09/24 12:17 Ondansetron Inj 4 Mg/2 Ml Vial IV PUSH Q4H PRN Nausea Radiology Results: ITS Impressions Chest X-Ray 06/09/24 09:33 IMPRESSION: Right lower lobe atelectasis versus pneumonia with pleural effusion. Labs Labs: Laboratory Tests 06/11/24 04:53 06/11/24 04:53 Calcium 8.2 L Phosphorus 5.5 H Magnesium 2.4 H Albumin 3.5
[2024-06-11] MEDS: EPOETIN ALFA-EPBX 20,000 UNITS/ML VIAL 20000 UNITS IV PUSH (11:08)
--- NOTE | 2024-06-11 11:08 | PM.IMPN ---
Progress Note: A&P Assessment and Plan (1) Symptomatic anemia: Code(s): D64.9 - Anemia, unspecified Status: Acute Assessment and Plan: Patient presents with hematemesis and hematochezia. Initial Hemoglobin 4.4 due to acute blood loss anemia. May have an underlying chronic anemia due to her renal disease but baseline HH unknown. She has received 3 units PRBCs in total. Hgb 7.4. No evidence of continued bleeding. Repeat Hemoglobin 7.4. EGD planned but canceled today. Plan for EGD in the morning. Follow HH and transfuse as needed. (2) Hematemesis: Code(s): K92.0 - Hematemesis Status: Acute Assessment and Plan: Patient reports she had hematemesis with bloody stools then felt better until at dialysis on 06/09 IV pantoprazole 40 mg Q12HR started after initial load of 80 mg IV in ER Preg test negative. N/V has resolved. Consider rapid transit UGI bleed causing hematochezia. GI consulted with plan for EGD on 06/11 (3) Hematochezia: Code(s): K92.1 - Melena Status: Acute Assessment and Plan: As above (4) Type 2 FL (myocardial infarction): Code(s): I21.A1 - Myocardial infarction type 2 Status: Acute Assessment and Plan: Patient denies any chest pain. Troponin elevated 0.122 and downtrending on repeat levels EKG showing sinus tachycardia, incomplete Rt BBB, borderline R-wave progression and borderline ST-T wave changes high lateral leads. No old EKG to compare. Repeat EKG showing similar findings. CXR reports need to evaluate for pericardial effusion Cardiology consulted and felt patient with Type II FL Patient did not receive aspirin in ER Echocardiogram ordered Suspect elevated troponin related to ESRD, anemia and deand ischemia. (5) Hypertension: Code(s): I10 - Essential (primary) hypertension Status: Acute Assessment and Plan: Patient's blood pressure was reviewed on 06/10 Blood pressure remains poorly controlled. Possibly related to needing HD. Will continue current medications and monitor Tighter control if BP does not improve with HD (6) ESRD (end stage renal disease) on dialysis: Code(s): N18.6 - End stage renal disease; Z99.2 - Dependence on renal dialysis Status: Acute Assessment and Plan: Patient with ESRD on dialysis [facility] at [facility]. 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 Nephrology consulted for HD which she had today. Continue HD per nephrology Plan DVT prophylaxis - SCDs Code status - full Subjective Date/time seen: 06/11/24 11:08 Interval history: 33yo female with HTN and ESRD on dialysis Saturday at [facility] in [place] who is admitted to hospital after feeling lightheaded and dizzy while at dialysis. Also reports hematemesis and bloody stool on 06/07/2024. Not available Exam Narrative: AF 98.7 150/96 72 16 95% ra Gen - NARD Chest - CTA bilaterally, nml RR CV - RRR S1/S2. Tele showing no significant dysrhythmias Abd - Soft, NT/ND, Positive BS Ext - No pedal edema, rt UE with thrill and bruit. Neuro - Alert and appropriate Psych - Nml mood and affect Skin - Warm and dry Objective Data Vital Signs Vital Signs: Vital Signs - 24 hr 06/10/24 11:09 06/10/24 12:00 06/10/24 12:00 Temperature 98.4 F 98 F Pulse Rate 79 76 81 Respiratory Rate 18 16 Blood Pressure 165/100 H 154/90 H Pulse Oximetry 100 Oxygen Delivery Fraction of Inspired Oxygen 06/10/24 16:00 06/10/24 16:00 06/10/24 14:00 Temperature 98.5 F Pulse Rate 85 84 82 Respiratory Rate 16 Blood Pressure 128/80 Pulse Oximetry 91 Oxygen Delivery Fraction of Inspired Oxygen 06/10/24 18:00 06/10/24 20:31 06/10/24 20:00 Temperature 98.4 F Pulse Rate 92 78 Respiratory Rate 16 Blood Pressure 133/82 Pulse Oximetry 99 Oxygen Delivery Room Air Fraction of Inspired Oxygen 06/10/24 20:00 06/10/24 22:00 06/10/24 23:55 Temperature 98.1 F Pulse Rate 78 76 76 Respiratory Rate 16 Blood Pressure 126/88 Pulse Oximetry 100 Oxygen Delivery Fraction of Inspired Oxygen 06/11/24 00:00 06/11/24 00:00 06/11/24 02:00 Temperature Pulse Rate 71 74 Respiratory Rate Blood Pressure Pulse Oximetry Oxygen Delivery Room Air Fraction of Inspired Oxygen 06/11/24 04:28 06/11/24 04:00 06/11/24 04:00 Temperature 98.7 F Pulse Rate 78 75 Respiratory Rate 16 Blood Pressure 142/91 H Pulse Oximetry 99 Oxygen Delivery Room Air Fraction of Inspired Oxygen 06/11/24 06:00 06/11/24 07:17 06/11/24 06:40 Temperature 97.9 F 98.7 F Pulse Rate 76 82 76 Respiratory Rate 19 16 Blood Pressure 148/95 H 144/92 H Pulse Oximetry 100 98 Oxygen Delivery Room Air Fraction of Inspired Oxygen 06/11/24 08:23 06/11/24 08:33 06/11/24 08:43 Temperature Pulse Rate 76 74 72 Respiratory Rate 20 20 20 Blood Pressure 140/98 H 134/94 H 139/98 H Pulse Oximetry 92 95 95 Oxygen Delivery Room Air Room Air Room Air Fraction of Inspired Oxygen 06/11/24 08:00 06/11/24 09:00 06/11/24 09:00 Temperature 98.7 F Pulse Rate 76 72 Respiratory Rate 16 Blood Pressure 144/92 H Pulse Oximetry 98 Oxygen Delivery Room Air Fraction of Inspired Oxygen 06/11/24 10:00 06/11/24 09:13 06/11/24 09:13 Temperature 98.7 F Pulse Rate 72 72 Respiratory Rate 16 Blood Pressure 150/96 H Pulse Oximetry 72 L Oxygen Delivery Fraction of Inspired Oxygen 98 Intake/Output Intake/Output: Intake & Output 06/08/24 06/09/24 06/10/24 06/11/24 23:59 23:59 23:59 23:59 Intake Total 1564.5 1400.5 240 Output Total 3 1100 Balance 1561.5 300.5 240 Meds/Results Medications: Active Medications Generic Name Dose Route Start Last Admin Trade Name Freq PRN Reason Stop Dose Admin Calcium Acetate 667 mg 06/09/24 21:55 06/11/24 09:19 Calcium Acetate 667 Mg Tablet PO Not Given BID NARENDRA Dextrose 12.5 gm 06/10/24 01:52 06/10/24 05:03 Dextrose 50% 25 Gm/50 Ml Syringe IV PUSH 12.5 gm PRN PRN Administration Hypoglycemia Protocol Epoetin Jean-epbx 20,000 units 06/11/24 20:00 06/11/24 11:08 Epoetin Jean-Epbx 20,000 Units/Ml Vial IV PUSH 06/11/24 20:01 20,000 units ONCE ONE Administration Glucagon 1 mg 06/10/24 01:52 Glucagon For Inj 1 Mg Vial IM PRN PRN Hypoglycemia Protocol Glucose 15 gm 06/10/24 01:52 Glucose Oral Gel 15 Gm Of Glucse In 37.5 Gm Tube PO PRN PRN Hypoglycemia Protocol Albumin Human 50 mls @ 999 mls/hr 06/10/24 05:46 Albutein IVPB 07/10/24 05:45 Q10M PRN HYPOTENSION Nifedipine 90 mg 06/10/24 09:00 06/10/24 11:47 Nifedipine 30 Mg Tab.Er.24 PO 90 mg DAILY NARENDRA Administration Ondansetron HCl 4 mg 06/09/24 12:17 Ondansetron Inj 4 Mg/2 Ml Vial IV PUSH Q4H PRN Nausea Radiology Results: ITS Impressions Chest X-Ray 06/09/24 09:33 IMPRESSION: Right lower lobe atelectasis versus pneumonia with pleural effusion. Labs Labs: Laboratory Results - last 24 hr 06/10/24 06/10/24 06/10/24 11:42 15:16 15:58 WBC RBC Hgb Hct MCV MCH MCHC RDW Plt Count MPV Immature Gran % (Auto) Neut % (Auto) Lymph % (Auto) [place] % (Auto) Eos % (Auto) Baso % (Auto) Lymph # (Auto) [place] # (Auto) Eos # (Auto) Baso # (Auto) Abs Immat Gran (auto) Absolute Neuts (auto) Absolute Nucleated RBC Nucleated RBC % Sodium Potassium Chloride Carbon Dioxide Anion Gap BUN Creatinine Estim Creat Clear Calc Estimated GFR Glucose POC Capillary Glucose 83 88 91 Calcium Phosphorus Magnesium Albumin 06/10/24 06/10/24 06/11/24 18:50 20:12 00:06 WBC RBC Hgb 8.9 L 8.6 L Hct 26.0 L 25.3 L MCV MCH MCHC RDW Plt Count MPV Immature Gran % (Auto) Neut % (Auto) Lymph % (Auto) [place] % (Auto) Eos % (Auto) Baso % (Auto) Lymph # (Auto) [place] # (Auto) Eos # (Auto) Baso # (Auto) Abs Immat Gran (auto) Absolute Neuts (auto) Absolute Nucleated RBC Nucleated RBC % Sodium Potassium Chloride Carbon Dioxide Anion Gap BUN Creatinine Estim Creat Clear Calc Estimated GFR Glucose POC Capillary Glucose 197 H Calcium Phosphorus Magnesium Albumin 06/11/24 06/11/24 04:53 06:45 WBC 6.0 RBC 2.41 L Hgb 7.7 L Hct 22.7 L MCV 94.2 MCH 32.0 MCHC 33.9 RDW 14.9 H Plt Count 201 MPV 10.2 Immature Gran % (Auto) 0.5 Neut % (Auto) 69.2 Lymph % (Auto) 16.8 L [place] % (Auto) 8.5 Eos % (Auto) 4.0 Baso % (Auto) 1.0 Lymph # (Auto) 1.01 [place] # (Auto) 0.5 Eos # (Auto) 0.2 Baso # (Auto) 0.1 Abs Immat Gran (auto) 0.03 Absolute Neuts (auto) 4.2 Absolute Nucleated RBC 0.000 Nucleated RBC % 0.0 Sodium 138 Potassium 5.0 Chloride 101 Carbon Dioxide 28 Anion Gap 9 BUN 54 H D Creatinine 6.20 H Estim Creat Clear Calc Not Reportable Estimated GFR 8 L Glucose 86 POC Capillary Glucose 86 Calcium 8.2 L Phosphorus 5.5 H Magnesium 2.4 H Albumin 3.5
[2024-06-11] MEDS: CALCIUM ACETATE 667 MG TABLET PO (13:16)
[2024-06-11] MEDS: NIFEdipine 30 MG TAB.ER.24 90 MG PO (13:16)
--- NOTE | 2024-06-11 14:38 | P.DS_ITS ---
DS: Admitting Diagnosis Discharge Date 06/11/24 Admitting Diagnosis Lightheaded, dizzy DS: Discharge Diagnosis Discharge Diagnosis (1) Symptomatic anemia: Code(s): D64.9 - Anemia, unspecified Status: Acute (2) Hematemesis: Code(s): K92.0 - Hematemesis Status: Acute (3) Hematochezia: Code(s): K92.1 - Melena Status: Acute (4) Type 2 MN (myocardial infarction): Code(s): I21.A1 - Myocardial infarction type 2 Status: Acute (5) Hypertension: Code(s): I10 - Essential (primary) hypertension Status: Acute (6) ESRD (end stage renal disease) on dialysis: Code(s): N18.6 - End stage renal disease; Z99.2 - Dependence on renal dialysis Status: Acute (7) Gastritis: Code(s): K29.70 - Gastritis, unspecified, without bleeding Status: Acute DS: Summary Hospital Course Reason for hospitalization: 33yo female with HTN and ESRD on dialysis Saturday at [facility] in [place] who is admitted to hospital after feeling lightheaded and dizzy while at dialysis. Also reports hematemesis and bloody stool on 06/07/2024. Please see H&P for details. Hospital Course: Patient presents with lightheaded and dizziness with a recent episodes of hematemesis and hematochezia. Initial Hemoglobin 4.4 felt due to acute blood loss anemia. May have an underlying chronic anemia due to her renal disease but baseline HH unknown. She received 3 units PRBCs in total. Hgb climbed to 7.4 and remained stable in the 7 range. No evidence of continued bleeding. Patient reports she had hematemesis with bloody stools on 06/07 then felt better until at dialysis on 06/09. IV pantoprazole 40 mg Q12HR started after initial load of 80 mg IV in ER. Preg test negative. Patient denied any chest pain. Troponin elevated 0.122 and downtrending on repeat levels. EKG showing sinus tachycardia, incomplete Rt BBB, borderline R-wave progression and borderline ST-T wave changes high lateral leads. No old EKG to compare. Repeat EKG showing similar findings. CXR reports need to evaluate for pericardial effusion. Cardiology consulted and felt patient with Type II MN. Patient did not receive aspirin in ER. Echo showing mildly increased LV wall thickness, normal LV systolic function (EF 65%), diastolic fxn normal, no aortic stenosis but trace MR and mild pulm HTN. Also consider elevated troponin related to ESRD, anemia and/or demand ischemia. Patient with ESRD on dialysis [facility] at [facility] in [place]. Nephrology consulted for HD and she was continued on her schedule. Blood pressure remained elevated at times. Discussed with nephrology. Plan to add Metoprolol XL daily. N/V has resolved. EGD showing mild diffuse chronic superficial gastritis in the body and atrum with erosive ch anges. No mucosal bleeding, peptic ulcers, dong-haddad tears or varices. Esophagus and duodenum were normal. Biopsy taken. GI did not recommend gastric suppression. She overall did well and was able to be discharged home on 06/11/24. Status at Discharge Cognitive/behavioral status at discharge: stable Time Spent with Patient Time attestation: Total time spent providing and/or coordinating discharge services: 34 minutes Time spent: Greater than 30 minutes Specific discharge activities: discharged instructions discussed through an interpretor Exam Narrative: AF 98.2 169/95 94 16 100% ra Gen - NARD Chest - CTA bilaterally, nml RR CV - RRR S1/S2 Abd - Soft, NT/ND, Positive BS Ext - No pedal edema. Thrill/bruit right upper arm Neuro - Alert and appropriate Psych - Nml mood and affect Skin - Warm and dry DS: Data Data Completed and Pending Pending studies at discharge: Pending at discharge 06/11/24 08:18 Surgical [PTH] Routine Labs on day of discharge: Labs from last 24 hours 06/11/24 06/11/24 06/11/24 06:45 04:53 00:06 WBC 6.0 RBC 2.41 L Hgb 7.7 L 8.6 L Hct 22.7 L 25.3 L MCV 94.2 MCH 32.0 MCHC 33.9 RDW 14.9 H Plt Count 201 MPV 10.2 Immature Gran % (Auto) 0.5 Neut % (Auto) 69.2 Lymph % (Auto) 16.8 L [place] % (Auto) 8.5 Eos % (Auto) 4.0 Baso % (Auto) 1.0 Lymph # (Auto) 1.01 [place] # (Auto) 0.5 Eos # (Auto) 0.2 Baso # (Auto) 0.1 Abs Immat Gran (auto) 0.03 Absolute Neuts (auto) 4.2 Absolute Nucleated RBC 0.000 Nucleated RBC % 0.0 Sodium 138 Potassium 5.0 Chloride 101 Carbon Dioxide 28 Anion Gap 9 BUN 54 H D Creatinine 6.20 H Estim Creat Clear Calc Not Reportable Estimated GFR 8 L Glucose 86 POC Capillary Glucose 86 Calcium 8.2 L Phosphorus 5.5 H Magnesium 2.4 H Albumin 3.5 06/10/24 06/10/24 06/10/24 20:12 18:50 15:58 WBC RBC Hgb 8.9 L Hct 26.0 L MCV MCH MCHC RDW Plt Count MPV Immature Gran % (Auto) Neut % (Auto) Lymph % (Auto) [place] % (Auto) Eos % (Auto) Baso % (Auto) Lymph # (Auto) [place] # (Auto) Eos # (Auto) Baso # (Auto) Abs Immat Gran (auto) Absolute Neuts (auto) Absolute Nucleated RBC Nucleated RBC % Sodium Potassium Chloride Carbon Dioxide Anion Gap BUN Creatinine Estim Creat Clear Calc Estimated GFR Glucose POC Capillary Glucose 197 H 91 Calcium Phosphorus Magnesium Albumin 06/10/24 15:16 WBC RBC Hgb Hct MCV MCH MCHC RDW Plt Count MPV Immature Gran % (Auto) Neut % (Auto) Lymph % (Auto) [place] % (Auto) Eos % (Auto) Baso % (Auto) Lymph # (Auto) [place] # (Auto) Eos # (Auto) Baso # (Auto) Abs Immat Gran (auto) Absolute Neuts (auto) Absolute Nucleated RBC Nucleated RBC % Sodium Potassium Chloride Carbon Dioxide Anion Gap BUN Creatinine Estim Creat Clear Calc Estimated GFR Glucose POC Capillary Glucose 88 Calcium Phosphorus Magnesium Albumin Discharge Plan Discharge Attending physician on discharge: Adonay Garcia Consulting providers: Layne Boateng; David Dumont Discharging Clinician: Adonay Garcia Anticipated Discharge Date/Time: 06/11/24 14:56 Patient Disposition: Home, Self-Care Activity: as tolerated Diet: renal Discharge Instructions: Please provide instructions in Latvian. Check blood pressure 1 to 2 times a day. Record and bring into your doctor for review. Call your doctor if your blood pressure is greater than 180/110. Contact your doctor or call 911 and come to the Emergency Room if you have evidence of blood loss, lightheadedness with standing or other worrisome symptoms. Avoid NSAIDs (ibuprofen, naproxen, Aleve). Tylenol is safe to take. Follow-up with your primary care provider in 1-2 weeks. Please call for appointment. Follow-up with GI doctor in 2-4 weeks. Please call for an appointment. --the GI office will call you with results of the biopsy. If you have not heard from them within 7 days, please call the office. Thank you for using [facility] for your health care needs. Patient Instructions: Antibiotic Form Stand Alone Forms: General Discharge Information Follow-up/Referrals: Berlin Gleason MD [Physician] - Call for Appointment UNKNOWN,DOCTOR [Primary Care Provider] - Call for Appointment Discharge Medications: New metoprolol succinate 25 mg capsule,sprinkle,ER 24hr 25 mg PO DAILY Qty: 30 1RF Continued nifedipine 90 mg tablet extended release 90 mg PO DAILY calcium acetate(phosphat bind) 667 mg capsule 667 mg PO BID Rx Instructions: twice daily with large meals Date of admission: 06/10/24 10:54 Primary Care Provider: UNKNOWN,DOCTOR Admitting Provider: Fatou Hale Attending physician on admission: Fatou Hale Condition: Stable Hospitalist MIPS Heart Failure (Exclusion) Patient has history of Heart Transplant or Left Ventricular Assistive Device?: No IF YES, STOP HERE Heart Failure (Qualifier) Patient has current or prior documentation of LVEF less than or equal to 40%, or mod/servere depressed LVSF?: No IF NO, STOP HERE
== END 2024-06-11 15:38 | disposition home or self-care (01) | DRG 241 ==
LOC: ANHED 11:03 → ANHIMU 13:58
PROVIDERS: Internal Medicine; Internal Medicine Gastroenterology; Internal Medicine Nephrology; Nurse Practitioner; Admitting Provider Family Medicine; Emergency Provider Emergency Medicine; Visit Provider Internal Medicine
PROC: 0DJ08ZZ Inspection of Upper Intestinal Tract, Via Natural or Artificial Opening Endoscopic (ICD-10-PCS; CPT 43235; principal; 2024-06-11 08:00)
DX: K29.60 Other gastritis without bleeding (principal); N18.6 End stage renal disease; I12.0 Hypertensive chronic kidney disease with stage 5 chronic kidney disease or end stage renal disease; K92.0 Hematemesis; K92.1 Melena; I21.A1 Myocardial infarction type 2; E87.20 Acidosis, unspecified; E87.1 Hypo-osmolality and hyponatremia; D62 Acute posthemorrhagic anemia; Z99.2 Dependence on renal dialysis; Z94.0 Kidney transplant status
CPT/HCPCS: 36415; 36430; 71046; 80048; 80053; 80069; 82948; 83690; 83735; 84484; 84702; 85014; 85018; 85025; 85610; 85730; 86706; 86850; 86900; 86901; 86923; 87340; 87641; 88305; 88342; 93005; 96361; 96374; 96375; 96376; 99285; A9270; C8929; G0257; G0378; G0379; J1815; J2003; J2470; J2704; J7030; J7040; J7050; J7120; P9016; P9047; Q5105; Q9957